=== PATIENT | male | born 1970 ===

== ENCOUNTER 2017-06-10 20:31 | Inpatient (IN) | payer BC, OTHER ==
[2017-06-10] MEDS ORDERED: Morphine 4 mg/ml ISec IVP STA (22:04)
--- NOTE | 2017-06-10 22:04 | ED PDOC ---
Arrival/HPI - General Chief Complaint: Abdominal Pain Time Seen by Provider: 06/10/17 22:03 Historian: Patient - History of Present Illness Narrative History of Present Illness (Text): 06/10/17 22:03 This 47 yo male with pmh gastritis, presents to this ED c/o intermittent RUQ and Epigastric pain x 2 weeks. Patient stated pain has worsen today. Patient feels chills, and nausea. Patient denies sob, cp, urinary symptoms, recent travel, or sick contact. Time/Duration: Other (see hpi) Context: Home Past Medical History - Provider Review Nursing Documentation Reviewed: Yes - Psychiatric Hx Psychophysiologic Disorder: No Hx Substance Use: No Family/Social History - Physician Review Nursing Documentation Reviewed: Yes Family/Social History: Other (noncontributory) Smoking Status: Never Smoked Hx Alcohol Use: No Hx Substance Use: No Allergies/Home Meds Allergies/Adverse Reactions: Allergies No Known Allergies Allergy (Verified 06/10/17 20:57) Home Medications: Home Meds Medication Instructions Recorded Confirmed No Known Home Med 06/10/17 06/10/17 Review of Systems - Review of Systems Constitutional: Normal. absent: Fatigue, Weight Change, Fevers Eyes: Normal ENT: Normal Respiratory: Normal. absent: SOB, Cough Cardiovascular: Normal. absent: Chest Pain, Palpitations Gastrointestinal: Abdominal Pain, Nausea, Vomiting Genitourinary Male: Normal. absent: Dysuria, Frequency, Hematuria Musculoskeletal: Normal Skin: Normal. absent: Rash Neurological: Normal. absent: Headache, Dizziness, Focal Weakness, Gait Changes , Speech Changes, Facial Droop, Disequilibrium, Seizure Endocrine: Normal Hemo/Lymphatic: Normal Psychiatric: Normal Physical Exam Vital Signs Temp Pulse Resp BP Pulse Ox 06/11/17 02:03 99.1 F 95 H 18 115/67 100 06/11/17 01:20 101.6 F H 06/11/17 00:42 101.6 F H 06/10/17 20:57 98.1 F 69 19 116/60 97 Temperature: Afebrile Blood Pressure: Normal Pulse: Regular Respiratory Rate: Normal Appearance: Positive for: Well-Appearing, Non-Toxic, Comfortable Pain Distress: None Mental Status: Positive for: Alert and Oriented X 3 - Systems Exam Head: Present: Atraumatic, Normocephalic Pupils: Present: PERRL Extroacular Muscles: Present: EOMI Conjunctiva: Present: Normal Mouth: Present: Moist Mucous Membranes Neck: Present: Normal Range of Motion Respiratory/Chest: Present: Clear to Auscultation, Good Air Exchange. No: Respiratory Distress, Accessory Muscle Use Cardiovascular: Present: Regular Rate and Rhythm, Normal S1, S2, Rub (and epigastric tenderness). No: Murmurs Abdomen: Present: Tenderness ((+) RUQ ). No: Distention, Peritoneal Signs, Rebound, Guarding Back: Present: Normal Inspection. No: CVA Tenderness Upper Extremity: Present: Normal Inspection. No: Cyanosis, Edema Lower Extremity: Present: Normal Inspection. No: Edema Neurological: Present: GCS=15, CN II-XII Intact, Speech Normal Skin: Present: Warm, Dry, Normal Color. No: Rashes Psychiatric: Present: Alert, Oriented x 3, Normal Insight, Normal Concentration Medical Decision Making ED Course and Treatment: 06/11/17 01:03 I spoke with surgical aides teacher regarding CT scan and lab result. He stated to put a consult for DR. Sheets, and he would take the rest. 06/11/17 02:20 Dr. Sheets is in blue list. I paged Dr. Vallejo, house doctor. 06/11/17 02:[address] Vallejo regarding patient symptoms, lab result and CT/US result. I told her surgical aides teacher is following this case with Dr. Sheets. I had also spoken with Dr. Sheppard , medical review coordinator who stated she was next doctor. She agreed with plan for admission. Re-evaluation Time: 01:03 Reassessment Condition: Re-examined, Improving,but remains with symptoms - Lab Interpretations Lab Results: 06/10/17 22:10 06/10/17 22:10 Lab Results 06/10/17 22:10: Sodium 140, Potassium 3.4 L, Chloride 97 L, Carbon Dioxide 30, Anion Gap 17, BUN 18, Creatinine 0.9, Est GFR ( Amer) > 60, Est GFR (Non- Af Amer) > 60, Random Glucose 184 H, Calcium 9.2, Magnesium 2.0, Total Bilirubin 2.7 H, AST 465 H, ALT 781 H, Alkaline Phosphatase 209 H, Total Protein 7.7, Albumin 4.3, Globulin 3.5, Albumin/Globulin Ratio 1.2, Lipase 152 06/10/17 22:10: PT 11.8, INR 1.03, APTT 26.7 06/10/17 22:10: WBC 10.6, RBC 4.46, Hgb 12.9 L, Hct 38.4 L, MCV 86.1, MCH 28.9, MCHC 33.6, RDW 12.8, Plt Count 217, MPV 10.0, Gran % 88.1 H, Lymph % (Auto) 6.5 L, King[place]isher % (Auto) 5.2, Eos % (Auto) 0.1 L, Baso % (Auto) 0.1, Gran # 9.57 H, Lymph # (Auto) 0.5 L, King[place]isher # (Auto) 0.6, Eos # (Auto) 0.0, Baso # (Auto) 0.01 I have reviewed the lab results: Yes Interpretation: Abnormal lab values - RAD Interpretation Narrative RAD Interpretations (Text): CT Scan ABD PELVIS IV CONTRAST ONLY FINDINGS: LIMITATIONS: Mild streak/motion artifact. LUNG BASES: Lung base findings most compatible with dependent atelectasis. HEART: Mild cardiomegaly. ABDOMEN: LIVER: Fatty infiltration of the liver. GALLBLADDER AND BILE DUCTS: Mild biliary ductal dilatation. The common bile duct measures 8 mm in diameter, and there is mild intrahepatic biliary ductal dilatation. Best seen on images 47 and 48 of series 601, there are at least 2 tiny (2 mm) densities in the lumen of the distal common bile duct, and cannot rule out common bile duct stones. Extensive small gallstones. Suspect a small amount of pericholecystic fluid. Moderate to marked gallbladder dilatation. PANCREAS: No CT evidence of acute pancreatitis. SPLEEN: No acute abnormality of the spleen identified. ADRENALS: No acute abnormality of the adrenal glands identified. KIDNEYS AND URETERS: Incidental tiny low density probable cystic left renal lesion, measuring 4 mm. Consistent with the [employer]?s Incidental Findings Committee Report, unless the patient?s specific circumstances suggest otherwise, any cystic kidney lesion less than 1.0 cm not otherwise characterized in this report as possessing suspicious or indeterminate imaging features is/are highly likely to be benign and do not require follow-up imaging or biopsy. No acute abnormality of the kidneys identified. STOMACH AND BOWEL: No acute abnormality of the stomach, small bowel or colon identified. No evidence of bowel obstruction. APPENDIX: Appendix is seen, and is within normal limits in appearance. PELVIS: BLADDER: No acute abnormality of the bladder identified. REPRODUCTIVE: No acute abnormality of the reproductive organs is seen. ABDOMEN and PELVIS: INTRAPERITONEAL SPACE: No evidence of free intraperitoneal air or fluid. BONES/JOINTS: No acute fractures or other acute bony abnormality noted. SOFT TISSUES: No acute abnormality of the visualized soft tissues is seen. VASCULATURE: No evidence of abdominal aortic aneurysm. No evidence of periaortic hemorrhage. LYMPH NODES: No evidence of diffuse lymphadenopathy. IMPRESSION: - Possible tiny stones in the distal common bile duct, with mild biliary ductal dilatation. - Extensive gallstones, with a suspected small amount of pericholecystic fluid. - Right upper quadrant ultrasound is recommended for further evaluation, to rule early acute cholecystitis and confirm the bile duct stones, unless otherwise clinically indicated. - See above for remaining findings. 06/11/17 00:05 Ultrasound ABDOMEN COMPLETE Exam Date: 06/10/17 This imaging exam was performed at [facility] EXAM: US Abdomen Complete FINDINGS: Gallbladder: Contains extensive, small shadowing gallstones, as well as sludge. No significant gallbladder wall thickening noted. No evidence of pericholecystic fluid. Reportedly negative sonographic Moore's sign. Common bile duct: Measures 6.1 mm, which is slightly dilated (normal less than 6 mm). No common bile duct stones are visualized by ultrasound. Liver: Demonstrates diffusely increased parenchymal echogenicity, most compatible with fatty infiltration. Enlarged, measuring 19 cm in length. Pancreas: Imaged portions appear unremarkable. Right kidney: Within normal limits in appearance. Measures 11.4 cm in length. No evidence of hydronephrosis. Left kidney: Within normal limits in appearance. Measures 12.9 cm in length. No evidence of hydronephrosis. Spleen: Mildly enlarged, measuring 14 cm in length. Aorta: Imaged portions appear unremarkable. IVC: Imaged portions appear unremarkable. IMPRESSION: Slightly dilated common bile duct, 6.1 mm. The possible bile duct stones seen on the recent CT are not visualized sonographically. Recommend correlation with LFTs for laboratory evidence of biliary obstruction, and further workup as indicated, such as with ERCP or MRCP. Extensive gallstones, with no sonographic evidence of acute cholecystitis. Enlarged, fatty liver. Mild splenomegaly. See above for remaining findings. Radiology Orders: 06/10/17 22:04 CHEST PORTABLE [RAD] Stat 06/10/17 22:20 ABDOMEN COMPLETE [US] Stat 06/10/17 22:22 ABD & PELVIS IV CONTRAST ONLY [CT] Stat - Medication Orders Current Medication Orders: Acetaminophen (Tylenol 325mg Tab) 650 mg PO Q6H PRN PRN Reason: Fever >100.4 F Last Admin: 06/11/17 06:52 Dose: 650 mg MAR Pain/Vitals Document 06/11/17 06:52 MAD (Rec: 06/11/17 06:53 MAD [id number]) Pain Reassessment Is This A Pain ReAssessment? Yes Sleep Is patient sleeping during reassessment? No Presence of Pain Presence of Pain Yes Pain Scale Used Pain Scale Used Numeric Location Pain Location Body [employer] Technology Specialist Pain Behavior Rubbing Site Alleviating Factors Medication Metronidazole (Flagyl) 500 mg in 100 mls @ 100 mls/hr IVPB Q8 DANNY PRN Reason: Protocol Last Admin: 06/11/17 05:36 Dose: Comments: 1rst dose scanned out of Pyxis 03:08 am in ER, too soon to give another dose Ceftriaxone Sodium (Rocephin 1 Gram Ivpb) 1 gm in 100 mls @ 100 mls/hr IVPB DAILY DANNY PRN Reason: Protocol Last Admin: 06/11/17 02:05 Dose: 100 mls/hr eMAR Start Stop Document 06/11/17 02:05 RD (Rec: 06/11/17 02:20 RD [id number]) Intravenous Solution Start Date 06/11/17 Start Time 02:05 End Date 06/11/17 End time 03:05 Total Infusion Time 60 Lactated Ringer's (Lactated Ringer's) 1,000 mls @ 100 mls/hr IV .Q10H [facility] Last Admin: 06/11/17 02:05 Dose: 100 mls/hr eMAR Start Stop Document 06/11/17 02:05 RD (Rec: 06/11/17 02:20 RD [id number]) Intravenous Solution Start Date 06/11/17 Start Time 02:05 Morphine Sulfate (Morphine) 2 mg IVP Q4H PRN PRN Reason: Pain, Mild (1-3) Last Admin: 06/11/17 03:54 Dose: 2 mg MAR Pain Assessment Document 06/11/17 03:54 MAD (Rec: 06/11/17 03:55 MAD [id number]) Pain Reassessment Is this a pain reassessment? Yes Sleep Is patient sleeping during reassessment? No Presence of Pain Presence of Pain Yes Pain Scale Used Pain Scale Used Numeric Location Left, Right or Bilateral Bilateral Pain Location Body Site Abdomen Description Description Radiating Intensity of Pain at present 8 Pain Behavior Facial Grimacing Alleviating Factors/Management Medication Techniques Alleviating Factors Medication IVP Administration Document 06/11/17 03:54 MAD (Rec: 06/11/17 03:55 MAD [place] [id number]) Charges for Administration # of IVP Administrations 1 Re-Assess: [facility] Pain Assessment Document 06/11/17 04:54 MAD (Rec: 06/11/17 05:38 MAD [place] [id number]) Pain Reassessment Is this a pain reassessment? Yes Sleep Is patient sleeping during reassessment? Yes Ondansetron HCl (Zofran Inj) 4 mg IVP Q4H PRN PRN Reason: Nausea/Vomiting Pantoprazole Sodium (Protonix Inj) 40 mg IVP DAILY [facility] Last Admin: 06/11/17 11:39 Dose: 40 mg IVP Administration Document 06/11/17 11:39 ROBIN (Rec: 06/11/17 11:40 ROBIN [place] [id number]) Charges for Administration # of IVP Administrations 1 Discontinued Medications Sodium Chloride (Sodium Chloride 0.9%) 1,000 mls @ 999 mls/hr IV .Q1H1M STA Stop: 06/10/17 23:19 Last Admin: 06/10/17 23:08 Dose: 999 mls/hr eMAR Start Stop Document 06/10/17 23:08 RD (Rec: 06/10/17 23:08 RD [id number]) Intravenous Solution Start Date 06/10/17 Start Time 23:08 End Date 06/11/17 End time 00:08 Total Infusion Time 60 Potassium Chloride (Potassium Chloride 10 Meq/100 Ml) 10 meq in 100 mls @ 50 mls/hr IVPB Q2H DANNY Stop: 06/11/17 07:29 Last Admin: 06/11/17 06:29 Dose: 50 mls/hr eMAR Start Stop Document 06/11/17 06:29 MAD (Rec: 06/11/17 06:30 MAD [place] [id number]) Intravenous Solution Start Date 06/11/17 Start Time 06:40 Sodium Chloride (Sodium Chloride 0.9%) 500 mls @ 999 mls/hr IV .Q31M STA Stop: 06/11/17 04:00 Morphine Sulfate (Morphine) 2 mg IVP STAT STA Stop: 06/10/17 22:05 Last Admin: 06/10/17 22:16 Dose: 2 mg MAR Pain Assessment Document 06/10/17 22:16 RD (Rec: 06/10/17 22:17 RD [id number]) Pain Reassessment Is this a pain reassessment? No Sleep Is patient sleeping during reassessment? No Presence of Pain Presence of Pain Yes Location Upper or Lower Upper Pain Location Body Site Abdomen Description Description Pressure Intensity of Pain at present 9 Pain Behavior Moaning Guarding Irritability Alleviating Factors/Management Medication Techniques Alleviating Factors Medication IVP Administration Document 06/10/17 22:16 RD (Rec: 06/10/17 22:17 RD [id number]) Charges for Administration # of IVP Administrations 1 Ondansetron HCl (Zofran Inj) 4 mg IVP STAT STA Stop: 06/10/17 22:06 Last Admin: 06/10/17 22:16 Dose: 4 mg IVP Administration Document 06/10/17 22:16 RD (Rec: 06/10/17 22:16 RD [id number]) Charges for Administration # of IVP Administrations 1 Pantoprazole Sodium (Protonix Inj) 40 mg IVP STAT STA Stop: 06/10/17 22:22 Last Admin: 06/10/17 23:08 Dose: 40 mg IVP Administration Document 06/10/17 23:08 RD (Rec: 06/10/17 23:08 RD [id number]) Charges for Administration # of IVP Administrations 1 Disposition/Present on Arrival - Present on Arrival Any Indicators Present on Arrival: No History of DVT/PE: No History of Uncontrolled Diabetes: No Urinary Catheter: No History of Decub. Ulcer: No History Surgical Site Infection Following: None - Disposition Have Diagnosis and Disposition been Completed?: Yes Diagnosis: Cholangitis Disposition: HOSPITALIZED Disposition Time: 01:04 Patient Problems: Current Active Problems Problem Status Onset Cholangitis Acute Condition: STABLE
[2017-06-10] MEDS ORDERED: Sodium Chloride 0.9% 1,000 ML IV STA (22:19)
[2017-06-10 22:32] LABS: BASO # 0.01 K/mm3 (0.0-2.0); BASO % 0.1 % (0.0-3.0); EOS % 0.1 % (1.5-5.0); GRAN # 9.57 (1.4-6.5); HEMOGLOBIN 12.9 g/dL (14.0-18.0); LYMPH # 0.5 (1.2-3.4); MEAN CELL VOLUME 86.1 fl (80.0-105.0); MEAN CORPUSCULAR HEMOGLOBIN 28.9 pg (25.0-35.0); MEAN CORPUSCULAR HGB CONC 33.6 g/dl (31.0-37.0); MONO # 0.6 (0.1-0.6); MONO % 5.2 % (1.0-6.0); RBC 4.46 10^6/uL (3.5-6.1); RED CELL DISTRIBUTION WIDTH 12.8 % (11.5-14.5); WHITE BLOOD COUNT 10.6 10^3/ul (4.5-11.0)
[2017-06-10 22:33] LABS: GRAN % 88.1 % (50.0-68.0)
[2017-06-10 22:34] LABS: LYMPH % 6.5 % (22.0-35.0)
[2017-06-10 22:39] LABS: ALB/GLOB RATIO 1.2 (1.1-1.8); ALBUMIN 4.3 g/dL (3.0-4.8); ALT/SGPT 781 U/L (7-56); AST/SGOT 465 U/L (17-59); BLOOD UREA NITROGEN 18 mg/dL (7-21); CALCIUM 9.2 mg/dL (8.4-10.5); GFR AFRICAN-AMERICAN > 60; GFR NON-AFRICAN AMERICAN > 60; LIPASE 152 U/L (23-300)
[2017-06-10 22:43] LABS: PROTHROMBIN TIME 11.8 SECONDS (9.4-12.5)
[2017-06-10 22:44] LABS: INR 1.03 (0.93-1.08); PARTIAL THROMBOPLASTIN TIME 26.7 Seconds (25.1-36.5)
[2017-06-10] MEDS ORDERED: Iohexol 350 MG/100 ML VIAL ONE (22:44)
--- NOTE | 2017-06-11 00:04 | CT ---
EXAM: CT Abdomen and Pelvis With Intravenous Contrast EXAM DATE/TIME: 06/10/2017 10:22 PM CLINICAL HISTORY: 47 years male; Pain; Abdominal pain; Localized; Right upper quadrant (ruq); Additional info: Epigastric pain TECHNIQUE: Axial computed tomography images of the abdomen and pelvis with intravenous contrast. All CT scans at this facility use one or more dose reduction techniques, viz.: automated exposure control; ma/kV adjustment per patient size (including targeted exams where dose is matched to indication; i.e. head); or iterative reconstruction technique. Coronal and sagittal reformatted images were created and reviewed. CONTRAST: 100 mL of OMNI administered intravenously. COMPARISON: No relevant prior studies available. FINDINGS: LIMITATIONS: Mild streak/motion artifact. LUNG BASES: Lung base findings most compatible with dependent atelectasis. HEART: Mild cardiomegaly. ABDOMEN: LIVER: Fatty infiltration of the liver. GALLBLADDER AND BILE DUCTS: Mild biliary ductal dilatation. The common bile duct measures 8 mm in diameter, and there is mild intrahepatic biliary ductal dilatation. Best seen on images 47 and 48 of series 601, there are at least 2 tiny (2 mm) densities in the lumen of the distal common bile duct, and cannot rule out common bile duct stones. Extensive small gallstones. Suspect a small amount of pericholecystic fluid. Moderate to marked gallbladder dilatation. PANCREAS: No CT evidence of acute pancreatitis. SPLEEN: No acute abnormality of the spleen identified. ADRENALS: No acute abnormality of the adrenal glands identified. KIDNEYS AND URETERS: Incidental tiny low density probable cystic left renal lesion, measuring 4 mm. Consistent with the [employer]?s Incidental Findings Committee Report, unless the patient?s specific circumstances suggest otherwise, any cystic kidney lesion less than 1.0 cm not otherwise characterized in this report as possessing suspicious or indeterminate imaging features is/are highly likely to be benign and do not require follow-up imaging or biopsy. No acute abnormality of the kidneys identified. STOMACH AND BOWEL: No acute abnormality of the stomach, small bowel or colon identified. No evidence of bowel obstruction. APPENDIX: Appendix is seen, and is within normal limits in appearance. PELVIS: BLADDER: No acute abnormality of the bladder identified. REPRODUCTIVE: No acute abnormality of the reproductive organs is seen. ABDOMEN and PELVIS: INTRAPERITONEAL SPACE: No evidence of free intraperitoneal air or fluid. BONES/JOINTS: No acute fractures or other acute bony abnormality noted. SOFT TISSUES: No acute abnormality of the visualized soft tissues is seen. VASCULATURE: No evidence of abdominal aortic aneurysm. No evidence of periaortic hemorrhage. LYMPH NODES: No evidence of diffuse lymphadenopathy. IMPRESSION: - Possible tiny stones in the distal common bile duct, with mild biliary ductal dilatation. - Extensive gallstones, with a suspected small amount of pericholecystic fluid. - Right upper quadrant ultrasound is recommended for further evaluation, to rule early acute cholecystitis and confirm the bile duct stones, unless otherwise clinically indicated. - See above for remaining findings.
--- NOTE | 2017-06-11 00:12 | US ---
EXAM: US Abdomen Complete EXAM DATE/TIME: 06/10/2017 10:20 PM CLINICAL HISTORY: 47 years old, male; Pain; Abdominal pain; Generalized; Additional info: Epigastric pain TECHNIQUE: Real-time ultrasound of the abdomen (complete) with image documentation. COMPARISON: Recent CT abdomen. FINDINGS: Gallbladder: Contains extensive, small shadowing gallstones, as well as sludge. No significant gallbladder wall thickening noted. No evidence of pericholecystic fluid. Reportedly negative sonographic Moore's sign. Common bile duct: Measures 6.1 mm, which is slightly dilated (normal less than 6 mm). No common bile duct stones are visualized by ultrasound. Liver: Demonstrates diffusely increased parenchymal echogenicity, most compatible with fatty infiltration. Enlarged, measuring 19 cm in length. Pancreas: Imaged portions appear unremarkable. Right kidney: Within normal limits in appearance. Measures 11.4 cm in length. No evidence of hydronephrosis. Left kidney: Within normal limits in appearance. Measures 12.9 cm in length. No evidence of hydronephrosis. Spleen: Mildly enlarged, measuring 14 cm in length. Aorta: Imaged portions appear unremarkable. IVC: Imaged portions appear unremarkable. IMPRESSION: Slightly dilated common bile duct, 6.1 mm. The possible bile duct stones seen on the recent CT are not visualized sonographically. Recommend correlation with LFTs for laboratory evidence of biliary obstruction, and further workup as indicated, such as with ERCP or MRCP. Extensive gallstones, with no sonographic evidence of acute cholecystitis. Enlarged, fatty liver. Mild splenomegaly. See above for remaining findings.
--- NOTE | 2017-06-11 00:50 | CP.PCM.HP ---
History of Present Illness - History of Present Illness History of Present Illness: General Surgery: Dr Sheets full dictation to follow Past Patient History - Past Social History Smoking Status: Never Smoked - PSYCHIATRIC Hx Psychophysiologic Disorder: No Hx Substance Use: No - SURGICAL HISTORY Hx Surgeries: No Meds Allergies/Adverse Reactions: Allergies Allergy/AdvReac Type Severity Reaction Status Date / Time No Known Allergies Allergy Verified 06/10/17 20:57 Results - Vital Signs Recent Vital Signs: Last Vital Signs Temp 101.6 F H 06/11/17 00:42 Pulse 69 06/10/17 20:57 Resp 19 06/10/17 20:57 BP 116/60 06/10/17 20:57 Pulse Ox 97 06/10/17 20:57 - Labs Result Diagrams: 06/10/17 22:10 06/10/17 22:10 Labs: Laboratory Results - last 24 hr 06/10/17 06/10/17 06/10/17 22:10 22:10 22:10 WBC 10.6 RBC 4.46 Hgb 12.9 L Hct 38.4 L MCV 86.1 MCH 28.9 MCHC 33.6 RDW 12.8 Plt Count 217 MPV 10.0 Gran % 88.1 H Lymph % (Auto) 6.5 L Stephen[place] % (Auto) 5.2 Eos % (Auto) 0.1 L Baso % (Auto) 0.1 Gran # 9.57 H Lymph # (Auto) 0.5 L Stephen[place] # (Auto) 0.6 Eos # (Auto) 0.0 Baso # (Auto) 0.01 PT 11.8 INR 1.03 APTT 26.7 Sodium 140 Potassium 3.4 L Chloride 97 L Carbon Dioxide 30 Anion Gap 17 BUN 18 Creatinine 0.9 Est GFR ( Amer) > 60 Est GFR (Non-Af Amer) > 60 Random Glucose 184 H Calcium 9.2 Magnesium 2.0 Total Bilirubin 2.7 H AST 465 H ALT 781 H Alkaline Phosphatase 209 H Total Protein 7.7 Albumin 4.3 Globulin 3.5 Albumin/Globulin Ratio 1.2 Lipase 152 Assessment & Plan - Assessment and Plan (Free Text) Plan: NPO iv fluids iv abx pain meds/anti-emetics prn IV protonix MRCP tomorrow routine GI consult will d/w Dr Sudeep Barbosa, PGY3
[2017-06-11] MEDS: Lactated Ringer's 1,000 ML IV SCH (02:05)
[2017-06-11] MEDS: cefTRIAXone 1 gm 1 GM/100 ML BAG IVPB SCH ×2 (02:05→14:23)
[2017-06-11] MEDS: metroNIDAZOLE IV 500 mg/100 ml 500 MG/100 ML BAG IVPB SCH ×4 (03:08→21:04)
[2017-06-11] MEDS ORDERED: Sodium Chloride 0.9% 500 ML IV STA (03:30)
--- NOTE | 2017-06-11 03:30 | CP.PCM.HP ---
History of Present Illness - History of Present Illness History of Present Illness: Valarie Ortiz, PGY1, H&P for Dr Elida Vallejo: CC: epigastric pain, subjective fevers 47 year old male with PMH gastritis?/GERD, presents to ED for epigastric pain for past 2 weeks. Pt states that since childhood, he had been told in his country [place] that he had gastritis because he could not drink milk. So far, he avoided acidic foods like coffee/tea, chocolate, spicy foods. Two weeks ago, he drank tea, he subsequently developed epigastric pain. It worsened over the next few days, describes it as sharp, associated with eating, intermittent, radiating to back, had associated subjective fevers, nausea, poor appetite. Pt reports a history of constipation, requiring miralax and sometimes enema. Denies jaundice, altered mental status, confusion, cough, cp, sob, diaphoresis, dizziness, weakness, urinary symptoms, leg swelling. No prior EGD/colonoscopy. In ED, pt febrile 101.6F, other vitals stable. Elevated t bili 2.7, AST 465, ALT 781, ALP 209, lipase normal. 1L NS bolus, protonix 40 IV, zofran and morphine given in ED. RUQ US showed stones in CBD, mildly dilated 6.1 mm. + gallstones. 12 point ROS obtained and neg, except as per HPI. PMH: gastritis?/GERD, headaches PSH: left eye cyst removalx3 (last one 2010) NKA FH: Mother, heart conditions (does not specific ones) Father, HTN denies Gi malignancies/conditions in family SH: Lives with and kid. Works at [employer]. Originally from [place]. Denies etoh/tobacco/illicit drug use. PMD: denies Present on Admission - Present on Admission Any Indicators Present on Admission: No History of DVT/PE: No History of Uncontrolled Diabetes: No Urinary Catheter: No Decubitus Ulcer Present: No Review of Systems - Review of Systems All systems: reviewed and no additional remarkable complaints except Review of Systems: as per HPI Past Patient History - Past Social History Smoking Status: Never Smoked - PSYCHIATRIC Hx Psychophysiologic Disorder: No Hx Substance Use: No - SURGICAL HISTORY Hx Surgeries: No Meds Allergies/Adverse Reactions: Allergies Allergy/AdvReac Type Severity Reaction Status Date / Time No Known Allergies Allergy Verified 06/10/17 20:57 Physical Exam - Constitutional Appears: Non-toxic, No Acute Distress - Head Exam Head Exam: ATRAUMATIC, NORMOCEPHALIC - Eye Exam Eye Exam: EOMI, PERRL, Scleral icterus (+ mild). absent: Conjunctival injection , Nystagmus, Periorbital swelling, Periorbital tenderness Pupil Exam: NORMAL ACCOMODATION, PERRL. absent: Fixed, Irregular, Miosis, Mydriatic, Unequal - ENT Exam ENT Exam: Mucous Membranes Dry - Neck Exam Neck exam: Positive for: Full Rom - Respiratory Exam Respiratory Exam: Clear to Auscultation Bilateral, NORMAL BREATHING PATTERN. absent: Accessory Muscle Use, Chest Wall Tenderness, Decreased Breath Sounds, Rales, Rhonchi, Wheezes, Stridor - Cardiovascular Exam Cardiovascular Exam: +S1, +S2. absent: Tachycardia, Systolic Murmur - GI/Abdominal Exam GI & Abdominal Exam: Guarding (mild in epigastric and RUQ areas), Hypoactive Bowel Sounds, Soft, Tenderness (TTP in epigastric and RUQ areas). absent: Distended, Firm, Hernia, Mass, Organomegaly, Rebound, Rigid - Extremities Exam Extremities exam: Positive for: normal inspection. Negative for: calf tenderness, pedal edema - Back Exam Back exam: NORMAL INSPECTION. absent: CVA tenderness (L), CVA tenderness (R) - Neurological Exam Neurological exam: Alert, Oriented x3 - Psychiatric Exam Psychiatric exam: Anxious, Normal Mood - Skin Skin Exam: Dry, Warm Additional comments: + jaundice noted on bilateral palms and sclera Results - Vital Signs Recent Vital Signs: Last Vital Signs Temp 99.1 F 06/11/17 02:03 Pulse 95 H 06/11/17 02:03 Resp 18 06/11/17 02:03 BP 115/67 06/11/17 02:03 Pulse Ox 100 06/11/17 02:03 - Labs Result Diagrams: 06/10/17 22:10 06/10/17 22:10 Labs: Laboratory Results - last 24 hr 06/10/17 06/10/17 06/10/17 22:10 22:10 22:10 WBC 10.6 RBC 4.46 Hgb 12.9 L Hct 38.4 L MCV 86.1 MCH 28.9 MCHC 33.6 RDW 12.8 Plt Count 217 MPV 10.0 Gran % 88.1 H Lymph % (Auto) 6.5 L [place] % (Auto) 5.2 Eos % (Auto) 0.1 L Baso % (Auto) 0.1 Gran # 9.57 H Lymph # (Auto) 0.5 L [place] # (Auto) 0.6 Eos # (Auto) 0.0 Baso # (Auto) 0.01 PT 11.8 INR 1.03 APTT 26.7 Sodium 140 Potassium 3.4 L Chloride 97 L Carbon Dioxide 30 Anion Gap 17 BUN 18 Creatinine 0.9 Est GFR ( Amer) > 60 Est GFR (Non-Af Amer) > 60 Random Glucose 184 H Calcium 9.2 Magnesium 2.0 Total Bilirubin 2.7 H AST 465 H ALT 781 H Alkaline Phosphatase 209 H Total Protein 7.7 Albumin 4.3 Globulin 3.5 Albumin/Globulin Ratio 1.2 Lipase 152 Assessment & Plan - Assessment and Plan (Free Text) Assessment: 47 year old male with PMH GERD/gastritis?, presents for epigastric pain, fever, jaundice: Cholangitis: 2/2 CBD stone vs less likely malignancy or benign stricture - Abd/pelvis CT: possible tiny stones in distal CBD, with mild biliary ductal dilatation. Extensive gallstones, with small amount of pericholecystic fluid. Fatty infiltration of liver - Abd US: Slightly dilated CBD, 6.1 mm. recommend further workup with MRCP or ERCP. extensive gallstones, with no sonographic evidence of cholecystitis. Enlarge fatty liver. Mild splenomegaly. - IV Rocephin, Flagyl - LR@100 - Type and Screen - Tylenol prn fever - Pain control. prn zofran - Surgery and GI on board. F/u recs - MRCP tomorrow at 9 AM - NPO - protonix IV Mild hypokalemia: - K ridersx2 - daily CMP - monitor PPX: Protonix IV, SCDs Discussed with Dr Elida Vallejo. - Date & Time Date: 06/11/17 Time: 03:30
[2017-06-11] MEDS: Morphine 4 mg/ml ISec IVP PRN ×2 (03:54→20:36)
[2017-06-11 05:15] VITALS: BMI 25.7
[2017-06-11 07:52] LABS: BASO # 0.01 K/mm3 (0.0-2.0); BASO % 0.1 % (0.0-3.0); EOS # 0.1 (0.0-0.7); EOS % 0.5 % (1.5-5.0); GRAN # 8.12 (1.4-6.5); GRAN % 82.7 % (50.0-68.0); HEMOGLOBIN 12.2 g/dL (14.0-18.0); LYMPH # 0.8 (1.2-3.4); LYMPH % 8.4 % (22.0-35.0); MEAN CELL VOLUME 86.5 fl (80.0-105.0); MEAN CORPUSCULAR HEMOGLOBIN 28.4 pg (25.0-35.0); MEAN CORPUSCULAR HGB CONC 32.8 g/dl (31.0-37.0); MONO # 0.8 (0.1-0.6); MONO % 8.3 % (1.0-6.0); RBC 4.3 10^6/uL (3.5-6.1); RED CELL DISTRIBUTION WIDTH 13.2 % (11.5-14.5); WHITE BLOOD COUNT 9.8 10^3/ul (4.5-11.0)
[2017-06-11 08:07] LABS: ALB/GLOB RATIO 1.3 (1.1-1.8); ALBUMIN 4.1 g/dL (3.0-4.8); ALT/SGPT 734 U/L (7-56); AST/SGOT 398 U/L (17-59); BILIRUBIN,DIRECT 2.7 mg/dL (0.0-0.4); BLOOD UREA NITROGEN 15 mg/dL (7-21); CALCIUM 8.6 mg/dL (8.4-10.5); GFR AFRICAN-AMERICAN > 60; GFR NON-AFRICAN AMERICAN > 60
--- NOTE | 2017-06-11 08:22 | CP.PCM.CON ---
History of Present Illness - History of Present Illness History of Present Illness: General Surgery Consult: Dr Sheets Pt is a 47M with PMH of gastritis who presents to ED with 2 weeks of epigastric pain. Pt states pain has been on and off, with intermittent nausea, but over the past 24 hours it has significantly worsened. The pain is 10/10, sharp stabbing in the epigastric region which radiates to the RUQ. He denies any vomiting, sob, or chest pain. He does admit to chills. Pt states this discomfort is different than his previous episodes of gastritis. Admits to regular bowel movements. Does not attribute his symptoms to any specific foods. Pt admits he does not regularly see a doctor. PMH: gastritis PSH: denies NKDA Review of Systems - Review of Systems All systems: reviewed and no additional remarkable complaints except (as per hpi ) Past Patient History - Past Social History Smoking Status: Never Smoked - CARDIAC Hx Cardiac Disorders: Yes - PULMONARY Hx Respiratory Disorders: No - NEUROLOGICAL Hx Neurological Disorder: No - HEENT Hx HEENT Problems: No - RENAL Hx Chronic Kidney Disease: No - ENDOCRINE/METABOLIC Hx Endocrine Disorders: No - HEMATOLOGICAL/ONCOLOGICAL Hx Blood Disorders: No - INTEGUMENTARY Hx Dermatological Problems: No - MUSCULOSKELETAL/RHEUMATOLOGICAL Hx Musculoskeletal Disorders: No Hx Falls: No - GASTROINTESTINAL Hx Gastrointestinal Disorders: Yes Other/Comment: Hx gastritis - GENITOURINARY/GYNECOLOGICAL Hx Genitourinary Disorders: No - PSYCHIATRIC Hx Psychophysiologic Disorder: No Hx Substance Use: No - SURGICAL HISTORY Hx Surgeries: No Meds Allergies/Adverse Reactions: Allergies Allergy/AdvReac Type Severity Reaction Status Date / Time No Known Allergies Allergy Verified 06/10/17 20:57 - Medications Medications: Current Medications Acetaminophen (Tylenol 325mg Tab) 650 mg PO Q6H PRN PRN Reason: Fever >100.4 F Last Admin: 06/11/17 06:52 Dose: 650 mg Metronidazole (Flagyl) 500 mg in 100 mls @ 100 mls/hr IVPB Q8 DANNY PRN Reason: Protocol Last Admin: 06/11/17 05:36 Dose: Not Given Ceftriaxone Sodium (Rocephin 1 Gram Ivpb) 1 gm in 100 mls @ 100 mls/hr IVPB DAILY DANNY PRN Reason: Protocol Last Admin: 06/11/17 02:05 Dose: 100 mls/hr Lactated Ringer's (Lactated Ringer's) 1,000 mls @ 100 mls/hr IV .Q10H [facility] Last Admin: 06/11/17 02:05 Dose: 100 mls/hr Morphine Sulfate (Morphine) 2 mg IVP Q4H PRN PRN Reason: Pain, Mild (1-3) Last Admin: 06/11/17 03:54 Dose: 2 mg Ondansetron HCl (Zofran Inj) 4 mg IVP Q4H PRN PRN Reason: Nausea/Vomiting Pantoprazole Sodium (Protonix Inj) 40 mg IVP DAILY [facility] Physical Exam - Constitutional Appears: Non-toxic, No Acute Distress - Head Exam Head Exam: NORMAL INSPECTION - Eye Exam Eye Exam: Normal appearance - ENT Exam ENT Exam: Mucous Membranes Dry - Respiratory Exam Respiratory Exam: absent: Accessory Muscle Use, Respiratory Distress - Cardiovascular Exam Cardiovascular Exam: REGULAR RHYTHM. absent: Tachycardia - GI/Abdominal Exam GI & Abdominal Exam: Soft, Tenderness (epigastric and RUQ). absent: Distended, Firm, Guarding, Hernia, Rebound, Rigid - Extremities Exam Extremities exam: Negative for: pedal edema - Neurological Exam Neurological exam: Alert, Oriented x3 - Psychiatric Exam Psychiatric exam: Normal Affect, Normal Mood - Skin Skin Exam: Normal Color, Warm Results - Vital Signs Recent Vital Signs: Last Vital Signs Temp 98.2 F 06/11/17 08:05 Pulse 84 06/11/17 08:05 Resp 20 06/11/17 08:05 BP 104/63 06/11/17 08:05 Pulse Ox 98 06/11/17 08:05 - Labs Result Diagrams: 06/11/17 07:30 06/11/17 07:30 Labs: Laboratory Results - last 24 hr 06/11/17 06/11/17 06/11/17 01:40 07:30 07:30 WBC 9.8 RBC 4.30 Hgb 12.2 L Hct 37.2 L MCV 86.5 MCH 28.4 MCHC 32.8 RDW 13.2 Plt Count 192 MPV 10.0 Gran % 82.7 H Lymph % (Auto) 8.4 L [place] % (Auto) 8.3 H Eos % (Auto) 0.5 L Baso % (Auto) 0.1 Gran # 8.12 H Lymph # (Auto) 0.8 L [place] # (Auto) 0.8 H Eos # (Auto) 0.1 Baso # (Auto) 0.01 Sodium 141 Potassium 3.7 Chloride 101 Carbon Dioxide 26 Anion Gap 17 BUN 15 Creatinine 0.8 Est GFR ( Amer) > 60 Est GFR (Non-Af Amer) > 60 Random Glucose 123 H Calcium 8.6 Total Bilirubin 3.1 H Direct Bilirubin 2.7 H AST 398 H ALT 734 H Alkaline Phosphatase 195 H Total Protein 7.4 Albumin 4.1 Globulin 3.3 Albumin/Globulin Ratio 1.3 Blood Type A POSITIVE Antibody Screen Negative BBK History Checked No verified bt Assessment & Plan - Assessment and Plan (Free Text) Assessment: 47M with possible choledocholithiasis; now with fevers Plan: NPO iv fluids iv abx pain meds/anti-emetics prn IV protonix MRCP tomorrow GI consult likely will need cholecystectomy this admission will d/w Dr Sudeep Barbosa, PGY3
--- NOTE | 2017-06-11 10:05 | RAD ---
HISTORY: Epigastric pain COMPARISON: No prior. FINDINGS: LUNGS: Poor inspiration with low, crowded bronchovascular markings and mild bibasilar atelectasis. PLEURA: No significant pleural effusion identified, no pneumothorax apparent. CARDIOVASCULAR: Heart appears borderline/ mildly enlarged OSSEOUS STRUCTURES: Note made of mild localized dextroscoliosis mid to lower thoracic spine VISUALIZED UPPER ABDOMEN: Normal. OTHER FINDINGS: None. IMPRESSION: Poor inspiration with low, crowded bronchovascular markings and mild bibasilar atelectasis.
--- NOTE | 2017-06-11 12:17 | CP.PCM.CON ---
<Josefina Obrien - Last Filed: 06/11/17 12:40> History of Present Illness - History of Present Illness History of Present Illness: Initial PGY4 GI Consult Zack Valerio is a 47M with hx of migraines who presents to ED for epigastric pain for past 2 weeks. Pt states that he has had chronic GERD like symptoms for years. He notes a sudden onset of acute and chronic symptoms for the past 2 week. It progressively worsened over the next few days. He characterizes it as sharp, associated with eating, intermittent, radiating to back. He also admits to associated subjective fevers, nausea, poor appetite. Pt reports a history of constipation, requiring miralax and sometimes enema. Denies jaundice, altered mental status, confusion, cough, cp, sob, diaphoresis, dizziness, weakness, urinary symptoms, leg swelling. No prior EGD/colonoscopy. Pt has been febrile with T. max of 101.6F, other vitals stable. Elevated t bili 2.7, AST 465, ALT 781, ALP 209, lipase normal. RUQ US showed stones in CBD, mildly dilated 6.1 mm. + gallstones. 12 point ROS obtained and neg, except as per HPI. PMH: gastritis?/GERD, headaches PSH: left eye cyst removalx3 (last one 2010) FH: Mother, heart conditions (does not specific ones), Father, HTN, denies Gi malignancies/conditions in family SH: Lives with and kid. Works at [employer]. Originally from [place]. Denies etoh/tobacco/illicit drug use. Endo hx: none ROS: 12 point ROS conducted, neg other than above Past Patient History - Past Social History Smoking Status: Never Smoked - CARDIAC Hx Cardiac Disorders: Yes - PULMONARY Hx Respiratory Disorders: No - NEUROLOGICAL Hx Neurological Disorder: No - HEENT Hx HEENT Problems: No - RENAL Hx Chronic Kidney Disease: No - ENDOCRINE/METABOLIC Hx Endocrine Disorders: No - HEMATOLOGICAL/ONCOLOGICAL Hx Blood Disorders: No - INTEGUMENTARY Hx Dermatological Problems: No - MUSCULOSKELETAL/RHEUMATOLOGICAL Hx Musculoskeletal Disorders: No Hx Falls: No - GASTROINTESTINAL Hx Gastrointestinal Disorders: Yes Other/Comment: Hx gastritis - GENITOURINARY/GYNECOLOGICAL Hx Genitourinary Disorders: No - PSYCHIATRIC Hx Psychophysiologic Disorder: No Hx Substance Use: No - SURGICAL HISTORY Hx Surgeries: No Meds Allergies/Adverse Reactions: Allergies Allergy/AdvReac Type Severity Reaction Status Date / Time No Known Allergies Allergy Verified 06/10/17 20:57 - Medications Medications: Current Medications Acetaminophen (Tylenol 325mg Tab) 650 mg PO Q6H PRN PRN Reason: Fever >100.4 F Last Admin: 06/11/17 06:52 Dose: 650 mg Metronidazole (Flagyl) 500 mg in 100 mls @ 100 mls/hr IVPB Q8 DANNY PRN Reason: Protocol Last Admin: 06/11/17 05:36 Dose: Not Given Ceftriaxone Sodium (Rocephin 1 Gram Ivpb) 1 gm in 100 mls @ 100 mls/hr IVPB DAILY [facility] PRN Reason: Protocol Last Admin: 06/11/17 02:05 Dose: 100 mls/hr Lactated Ringer's (Lactated Ringer's) 1,000 mls @ 100 mls/hr IV .Q10H [facility] Last Admin: 06/11/17 02:05 Dose: 100 mls/hr Morphine Sulfate (Morphine) 2 mg IVP Q4H PRN PRN Reason: Pain, Mild (1-3) Last Admin: 06/11/17 03:54 Dose: 2 mg Ondansetron HCl (Zofran Inj) 4 mg IVP Q4H PRN PRN Reason: Nausea/Vomiting Pantoprazole Sodium (Protonix Inj) 40 mg IVP DAILY [facility] Last Admin: 06/11/17 11:39 Dose: 40 mg Physical Exam - Constitutional Appears: Well, No Acute Distress - Head Exam Head Exam: ATRAUMATIC, NORMOCEPHALIC - Eye Exam Eye Exam: Normal appearance. absent: Scleral icterus - ENT Exam ENT Exam: Mucous Membranes Moist, Normal Exam - Neck Exam Neck exam: Positive for: Normal Inspection - Respiratory Exam Respiratory Exam: Clear to Auscultation Bilateral, NORMAL BREATHING PATTERN. absent: Prolonged Expiratory Phase, Rales, Rhonchi, Wheezes - Cardiovascular Exam Cardiovascular Exam: REGULAR RHYTHM, +S1, +S2 - GI/Abdominal Exam GI & Abdominal Exam: Normal Bowel Sounds. absent: Distended, Guarding, Organomegaly, Pulsatile Mass, Rebound, Rigid, Soft - Extremities Exam Extremities exam: Negative for: joint swelling, pedal edema - Neurological Exam Neurological exam: Alert, Oriented x3 - Psychiatric Exam Psychiatric exam: Normal Affect, Normal Mood - Skin Skin Exam: Dry, Intact, Normal Color, Warm Results - Vital Signs Recent Vital Signs: Last Vital Signs Temp 98.2 F 06/11/17 08:05 Pulse 84 06/11/17 08:05 Resp 20 06/11/17 08:05 BP 104/63 06/11/17 08:05 Pulse Ox 98 06/11/17 08:05 - Labs Result Diagrams: 06/11/17 07:30 06/11/17 07:30 Labs: Laboratory Results - last 24 hr 06/11/17 06/11/17 06/11/17 01:40 07:30 07:30 WBC 9.8 RBC 4.30 Hgb 12.2 L Hct 37.2 L MCV 86.5 MCH 28.4 MCHC 32.8 RDW 13.2 Plt Count 192 MPV 10.0 Gran % 82.7 H Lymph % (Auto) 8.4 L [place] % (Auto) 8.3 H Eos % (Auto) 0.5 L Baso % (Auto) 0.1 Gran # 8.12 H Lymph # (Auto) 0.8 L [place] # (Auto) 0.8 H Eos # (Auto) 0.1 Baso # (Auto) 0.01 Sodium 141 Potassium 3.7 Chloride 101 Carbon Dioxide 26 Anion Gap 17 BUN 15 Creatinine 0.8 Est GFR ( Amer) > 60 Est GFR (Non-Af Amer) > 60 Random Glucose 123 H Calcium 8.6 Total Bilirubin 3.1 H Direct Bilirubin 2.7 H AST 398 H ALT 734 H Alkaline Phosphatase 195 H Total Protein 7.4 Albumin 4.1 Globulin 3.3 Albumin/Globulin Ratio 1.3 Blood Type A POSITIVE Blood Type Confirm Antibody Screen Negative BBK History Checked No verified bt 06/11/17 07:30 WBC RBC Hgb Hct MCV MCH MCHC RDW Plt Count MPV Gran % Lymph % (Auto) [place] % (Auto) Eos % (Auto) Baso % (Auto) Gran # Lymph # (Auto) [place] # (Auto) Eos # (Auto) Baso # (Auto) Sodium Potassium Chloride Carbon Dioxide Anion Gap BUN Creatinine Est GFR ( Amer) Est GFR (Non-Af Amer) Random Glucose Calcium Total Bilirubin Direct Bilirubin AST ALT Alkaline Phosphatase Total Protein Albumin Globulin Albumin/Globulin Ratio Blood Type Blood Type Confirm A POSITIVE Antibody Screen BBK History Checked Assessment & Plan - Assessment and Plan (Free Text) Assessment: Zack Valerio is a 47M w. hx of GERD who presents to the ER with epigastric and RUQ pain Choleangitis Cholelithiasis GERD Chronic constipation Plan: -ERCO for tomorrow -no need for MRCP -NPO after midnight -okay for clears to day -continue abc; ceftriaxone and flagyl -continue protonix 40mg daily -blood cultures -miralax BID D/w Dr. Rene <Ronald Rene - Last Filed: 06/11/17 16:40> Meds - Medications Medications: Current Medications Acetaminophen (Tylenol 325mg Tab) 650 mg PO Q6H PRN PRN Reason: Fever >100.4 F Last Admin: 06/11/17 06:52 Dose: 650 mg Acetaminophen (Tylenol 325mg Tab) 650 mg PO Q6H PRN PRN Reason: Headache Last Admin: 06/11/17 13:54 Dose: 650 mg Metronidazole (Flagyl) 500 mg in 100 mls @ 100 mls/hr IVPB Q8 DANNY PRN Reason: Protocol Last Admin: 06/11/17 13:52 Dose: 100 mls/hr Ceftriaxone Sodium (Rocephin 1 Gram Ivpb) 1 gm in 100 mls @ 100 mls/hr IVPB DAILY DANNY PRN Reason: Protocol Last Admin: 06/11/17 14:23 Dose: 100 mls/hr Lactated Ringer's (Lactated Ringer's) 1,000 mls @ 100 mls/hr IV .Q10H [facility] Last Admin: 06/11/17 02:05 Dose: 100 mls/hr Morphine Sulfate (Morphine) 2 mg IVP Q4H PRN PRN Reason: Pain, Mild (1-3) Last Admin: 06/11/17 03:54 Dose: 2 mg Ondansetron HCl (Zofran Inj) 4 mg IVP Q4H PRN PRN Reason: Nausea/Vomiting Pantoprazole Sodium (Protonix Inj) 40 mg IVP DAILY [facility] Last Admin: 06/11/17 11:39 Dose: 40 mg Polyethylene Glycol (Miralax) 17 gm PO BID [facility] Results - Vital Signs Recent Vital Signs: Last Vital Signs Temp 98.2 F 06/11/17 08:05 Pulse 84 06/11/17 08:05 Resp 20 06/11/17 08:05 BP 104/63 06/11/17 08:05 Pulse Ox 98 06/11/17 08:05 - Labs Result Diagrams: 06/11/17 07:30 06/11/17 07:30 Labs: Laboratory Results - last 24 hr 06/11/17 06/11/17 06/11/17 01:40 07:30 07:30 WBC 9.8 RBC 4.30 Hgb 12.2 L Hct 37.2 L MCV 86.5 MCH 28.4 MCHC 32.8 RDW 13.2 Plt Count 192 MPV 10.0 Gran % 82.7 H Lymph % (Auto) 8.4 L [place] % (Auto) 8.3 H Eos % (Auto) 0.5 L Baso % (Auto) 0.1 Gran # 8.12 H Lymph # (Auto) 0.8 L [place] # (Auto) 0.8 H Eos # (Auto) 0.1 Baso # (Auto) 0.01 Sodium 141 Potassium 3.7 Chloride 101 Carbon Dioxide 26 Anion Gap 17 BUN 15 Creatinine 0.8 Est GFR ( Amer) > 60 Est GFR (Non-Af Amer) > 60 Random Glucose 123 H Calcium 8.6 Total Bilirubin 3.1 H Direct Bilirubin 2.7 H AST 398 H ALT 734 H Alkaline Phosphatase 195 H Total Protein 7.4 Albumin 4.1 Globulin 3.3 Albumin/Globulin Ratio 1.3 Blood Type A POSITIVE Blood Type Confirm Antibody Screen Negative BBK History Checked No verified bt 06/11/17 07:30 WBC RBC Hgb Hct MCV MCH MCHC RDW Plt Count MPV Gran % Lymph % (Auto) [place] % (Auto) Eos % (Auto) Baso % (Auto) Gran # Lymph # (Auto) [place] # (Auto) Eos # (Auto) Baso # (Auto) Sodium Potassium Chloride Carbon Dioxide Anion Gap BUN Creatinine Est GFR ( Amer) Est GFR (Non-Af Amer) Random Glucose Calcium Total Bilirubin Direct Bilirubin AST ALT Alkaline Phosphatase Total Protein Albumin Globulin Albumin/Globulin Ratio Blood Type Blood Type Confirm A POSITIVE Antibody Screen BBK History Checked Attending/Attestation - Attestation I have personally seen and examined this patient.: Yes I have fully participated in the care of the patient.: Yes I have reviewed all pertinent clinical information: Yes Notes (Text): 06/11/17 16:39 47 year old male with abdominal pain, elevated lfts, found to have choledocholithiasis and cholangitis. Plan for ERCP tomorrow. Recommend broad spectrum abx in the interim.
[2017-06-11] MEDS ORDERED: Magnesium Hydroxide Susp 30 ml UD PO ONE (13:27)
[2017-06-11] MEDS: POLYETHYLENE GLYCOL 3350 17 GM/Dose PACKET PO SCH (18:10)
--- NOTE | 2017-06-11 22:45 | CON ---
DATE: HISTORY OF PRESENT ILLNESS: Patient is seen on the floor for the first time. He is admitted with abdominal pain from the emergency room. His temperature on admission was 101.6. He is afebrile now. Blood pressure is normal. 150 pounds. White count is 9.8, hemoglobin 12, platelets normal. Coags normal. SMA, liver function showed a bilirubin of 3.1 mostly direct. AST and ALT are both elevated; one 400, one 700. Alk phos is slightly elevated at 195. CAT scan is done, which showed a dilated common duct and possible choledocholithiasis. MRCP is ordered, but canceled. Seen by Dr. Rene and I believe, an ERCP is ordered and indicated. Ultrasound showed a dilated common duct of 6.1, questionable stones and a thinned-walled gallbladder. Apparently, ERCP is scheduled for tomorrow, possibly Tuesday. He is on antibiotics. Miguel Sheets MD
--- NOTE | 2017-06-11 23:46 | CARD ---
APPROVED REPORT EKG Measurement Heart [id number] <Conclusion> Sinus tachycardia Voltage criteria for left ventricular hypertrophy Inferior infarct, age undetermined Abnormal ECG
[2017-06-12] MEDS: Morphine 4 mg/ml ISec IVP PRN (03:05)
[2017-06-12] MEDS: metroNIDAZOLE IV 500 mg/100 ml 500 MG/100 ML BAG IVPB SCH ×3 (05:20→21:11)
[2017-06-12] MEDS ORDERED: Morphine 4 mg/ml ISec IVP ONE (05:29)
[2017-06-12] MEDS ORDERED: Lactated Ringer's 1,000 ML IV SCH (08:00)
[2017-06-12] MEDS ORDERED: Propofol 10 mg/ml Inj (20 ML) ONE (08:07)
[2017-06-12] MEDS ORDERED: Succinylcholine 200 mg/10 ml Inj IV ONE (08:08)
[2017-06-12 08:12] LABS: EOS # 0.1 (0.0-0.7); EOS % 0.6 % (1.5-5.0); GRAN # 6.79 (1.4-6.5); GRAN % 85.5 % (50.0-68.0); HEMOGLOBIN 11.2 g/dL (14.0-18.0); LYMPH # 0.5 (1.2-3.4); LYMPH % 6.5 % (22.0-35.0); MEAN CELL VOLUME 86.9 fl (80.0-105.0); MEAN CORPUSCULAR HEMOGLOBIN 28.3 pg (25.0-35.0); MEAN CORPUSCULAR HGB CONC 32.6 g/dl (31.0-37.0); MEAN PLATELET VOLUME 10.3 fl (7.0-11.0); MONO # 0.6 (0.1-0.6); MONO % 7.4 % (1.0-6.0); RBC 3.96 10^6/uL (3.5-6.1)
[2017-06-12] MEDS ORDERED: Indomethacin 50 MG Suppository PR ONE (08:16)
[2017-06-12] MEDS ORDERED: Iohexol 240 (50 ml) ONE (08:17)
--- NOTE | 2017-06-12 08:21 | CP.PCM.PN ---
<Oj Murray - Last Filed: 06/12/17 11:32> Subjective - Date & Time of Evaluation Date of Evaluation: 06/12/17 Time of Evaluation: 08:12 - Subjective Subjective: Patient seen and evaluated this AM. No acute events overnight. Patient went for ERCP today. Patient reports continued abdoominal discomfort. Improved over past 24 hours. Denies chest pain, shortness of breath, vomiting, fever. Objective - Vital Signs/Intake and Output Vital Signs (last 24 hours): Temp Pulse Resp BP Pulse Ox 98 F 70 18 126/83 95 06/12/17 08:10 06/12/17 08:10 06/12/17 08:10 06/12/17 08:10 06/12/17 08:10 Intake and Output: 06/12/17 06/12/17 06:59 18:59 Intake Total 240 Balance 240 - Medications Medications: Current Medications Acetaminophen (Tylenol 325mg Tab) 650 mg PO Q6H PRN PRN Reason: Fever >100.4 F Last Admin: 06/11/17 06:52 Dose: 650 mg Acetaminophen (Tylenol 325mg Tab) 650 mg PO Q6H PRN PRN Reason: Headache Last Admin: 06/11/17 13:54 Dose: 650 mg Metronidazole (Flagyl) 500 mg in 100 mls @ 100 mls/hr IVPB Q8 [facility] PRN Reason: Protocol Last Admin: 06/12/17 05:20 Dose: 100 mls/hr Ceftriaxone Sodium (Rocephin 1 Gram Ivpb) 1 gm in 100 mls @ 100 mls/hr IVPB DAILY [facility] PRN Reason: Protocol Last Admin: 06/11/17 14:23 Dose: 100 mls/hr Lactated Ringer's (Lactated Ringer's) 1,000 mls @ 100 mls/hr IV .Q10H [facility] Last Admin: 06/11/17 02:05 Dose: 100 mls/hr Lactated Ringer's (Lactated Ringer's) 1,000 mls @ 75 mls/hr IV .[id number] [facility] Stop: 06/12/17 10:01 Morphine Sulfate (Morphine) 2 mg IVP Q4H PRN PRN Reason: Pain, Mild (1-3) Last Admin: 06/12/17 03:05 Dose: 2 mg Ondansetron HCl (Zofran Inj) 4 mg IVP Q4H PRN PRN Reason: Nausea/Vomiting Pantoprazole Sodium (Protonix Inj) 40 mg IVP DAILY [facility] Last Admin: 06/11/17 11:39 Dose: 40 mg Polyethylene Glycol (Miralax) 17 gm PO BID [facility] Last Admin: 06/11/17 18:10 Dose: 17 gm - Labs Labs: 06/12/17 07:30 06/11/17 07:30 PT 11.8 SECONDS (9.4-12.5) 06/10/17 22:10 INR 1.03 (0.93-1.08) 06/10/17 22:10 APTT 26.7 Seconds (25.1-36.5) 06/10/17 22:10 - Constitutional Appears: No Acute Distress - Head Exam Head Exam: ATRAUMATIC, NORMAL INSPECTION, NORMOCEPHALIC - Eye Exam Eye Exam: EOMI, PERRL - ENT Exam ENT Exam: Mucous Membranes Moist - Respiratory Exam Respiratory Exam: Clear to Ausculation Bilateral, NORMAL BREATHING PATTERN. absent: Rales, Rhonchi, Wheezes - Cardiovascular Exam Cardiovascular Exam: REGULAR RHYTHM, +S1, +S2 - GI/Abdominal Exam GI & Abdominal Exam: Guarding (mid to right upper quadrant), Soft, Tenderness, Normal Bowel Sounds - Extremities Exam Extremities Exam: Normal Inspection. absent: Calf Tenderness, Pedal Edema - Neurological Exam Neurological Exam: Alert, Awake, Normal Gait, Oriented x3 - Psychiatric Exam Psychiatric exam: Normal Affect, Normal Mood - Skin Skin Exam: Dry, Warm Assessment and Plan - Assessment and Plan (Free Text) Assessment: 47 year old male with past medical history of GERD?, migraines who presented with epigastric pain, found to have choledocholithiasis and cholangitis. GI and General surgery consulted. Pt is s/p ERCP with sphincterotomy and stone/sludge extraction. Plan: Cholangitis/Choledocholithiasis Details: - Abd US: Slightly dilated CBD, 6.1 mm.extensive gallstones, with no sonographic evidence of cholecystitis. Enlarge fatty liver. Mild splenomegaly. - Abd/pelvis CT: possible tiny stones in distal CBD, with mild biliary ductal dilatation. Extensive gallstones, with small amount of pericholecystic fluid. Fatty infiltration of liver - Febrile, RUQ pain, elevated WBC - MRCP cacelled, ERCP scheduled - GI consulted - Gen Surgery consulted Plan: - IV abx with Rocephin and Flagyl - IVF - ERCP s/p sphincterotomy and stone/sludge extraction Transaminitis Details: - AST 398, ALT 734 - Slightly improved from admission - Etiology likely due to cholangitis/choledocholithiasis Plan: - ERCP, possible cholecystectomy - Monitor DVT ppx: SCDs GI ppx: Protonix Case and plan discussed with attending <Nemo Simons - Last Filed: 06/12/17 12:22> Objective - Vital Signs/Intake and Output Vital Signs (last 24 hours): Temp Pulse Resp BP Pulse Ox 98 F 60 16 128/64 99 06/12/17 10:07 06/12/17 10:07 06/12/17 10:07 06/12/17 10:07 06/12/17 10:07 Intake and Output: 06/12/17 06/12/17 06:59 18:59 Intake Total 240 150 Balance 240 150 - Medications Medications: Current Medications Acetaminophen (Tylenol 325mg Tab) 650 mg PO Q6H PRN PRN Reason: Fever >100.4 F Last Admin: 06/11/17 06:52 Dose: 650 mg Acetaminophen (Tylenol 325mg Tab) 650 mg PO Q6H PRN PRN Reason: Headache Last Admin: 06/11/17 13:54 Dose: 650 mg Metronidazole (Flagyl) 500 mg in 100 mls @ 100 mls/hr IVPB Q8 [facility] PRN Reason: Protocol Last Admin: 06/12/17 05:20 Dose: 100 mls/hr Ceftriaxone Sodium (Rocephin 1 Gram Ivpb) 1 gm in 100 mls @ 100 mls/hr IVPB DAILY [facility] PRN Reason: Protocol Last Admin: 06/11/17 14:23 Dose: 100 mls/hr Lactated Ringer's (Lactated Ringer's) 1,000 mls @ 100 mls/hr IV .Q10H [facility] Last Admin: 06/11/17 02:05 Dose: 100 mls/hr Morphine Sulfate (Morphine) 2 mg IVP Q4H PRN PRN Reason: Pain, Mild (1-3) Last Admin: 06/12/17 03:05 Dose: 2 mg Ondansetron HCl (Zofran Inj) 4 mg IVP Q4H PRN PRN Reason: Nausea/Vomiting Pantoprazole Sodium (Protonix Inj) 40 mg IVP DAILY [facility] Last Admin: 06/11/17 11:39 Dose: 40 mg Polyethylene Glycol (Miralax) 17 gm PO BID [facility] Last Admin: 06/11/17 18:10 Dose: 17 gm - Labs Labs: 06/12/17 07:30 06/12/17 07:30 PT 11.8 SECONDS (9.4-12.5) 06/10/17 22:10 INR 1.03 (0.93-1.08) 06/10/17 22:10 APTT 26.7 Seconds (25.1-36.5) 06/10/17 22:10 Attending/Attestation - Attestation I have fully participated in the care of the patient.: Yes I have reviewed all pertinent clinical information, including history, physical exam and plan: Yes Notes (Text): 06/12/17 12:16 Medical record note made by the resident after discussion with my direction and input after the patient was personally seen and examined by me. I have reviewed the chart and agree that the record accurately reflects by personal performance of the history, physical exam, data review, and medical decision-making, in the course for the patient. I have also personally directed the plan of care. 47 year old male was admitted with abdominal pain , fever and elevated LFT ( Acute cholangitis ,)USG and CT abdomen showed gall stone, dilated CBD and stone in CB Patient underwent ERCP today and is SP sphincterotomy and stone/sludge extraction, He will eventually need cholycystectomy , surgery is following. We will continue , IV Rocephin and Flagyl and will monitor LFT Management plan was discussed in detail with patient. Education was provided. 06/12/17 12:21
[2017-06-12] MEDS ORDERED: Benzocaine/Butamben/Tetracai 14-2-2% TOP Spray TOP ONE (08:28)
[2017-06-12] MEDS ORDERED: Desflurane Inhalation Anesthetic Liq (240 ml) ONE (09:00)
[2017-06-12 09:08] LABS: ALB/GLOB RATIO 1.2 (1.1-1.8); ALBUMIN 3.9 g/dL (3.0-4.8); ALT/SGPT 579 U/L (7-56); AST/SGOT 230 U/L (17-59); BLOOD UREA NITROGEN 8 mg/dL (7-21); CALCIUM 8.9 mg/dL (8.4-10.5); GFR AFRICAN-AMERICAN > 60; GFR NON-AFRICAN AMERICAN > 60
[2017-06-12] MEDS ORDERED: Morphine 4 mg/ml ISec IVP PRN (09:37)
[2017-06-12] MEDS: POLYETHYLENE GLYCOL 3350 17 GM/Dose PACKET PO SCH ×2 (09:56→19:20)
[2017-06-12] MEDS: cefTRIAXone 1 gm 1 GM/100 ML BAG IVPB SCH (09:57)
--- NOTE | 2017-06-12 12:29 | CP.PCM.PN ---
Subjective - Date & Time of Evaluation Date of Evaluation: 06/12/17 Time of Evaluation: 06:45 - Subjective Subjective: Surgery: Dr. Sheets Pt seen and examined. Continues to have epigastric pain. For ERCP today. Objective - Vital Signs/Intake and Output Vital Signs (last 24 hours): Temp Pulse Resp BP Pulse Ox 98 F 60 16 128/64 99 06/12/17 10:07 06/12/17 10:07 06/12/17 10:07 06/12/17 10:07 06/12/17 10:07 Intake and Output: 06/12/17 06/12/17 06:59 18:59 Intake Total 240 150 Balance 240 150 - Medications Medications: Current Medications Acetaminophen (Tylenol 325mg Tab) 650 mg PO Q6H PRN PRN Reason: Fever >100.4 F Last Admin: 06/11/17 06:52 Dose: 650 mg Acetaminophen (Tylenol 325mg Tab) 650 mg PO Q6H PRN PRN Reason: Headache Last Admin: 06/11/17 13:54 Dose: 650 mg Metronidazole (Flagyl) 500 mg in 100 mls @ 100 mls/hr IVPB Q8 [facility] PRN Reason: Protocol Last Admin: 06/12/17 05:20 Dose: 100 mls/hr Ceftriaxone Sodium (Rocephin 1 Gram Ivpb) 1 gm in 100 mls @ 100 mls/hr IVPB DAILY [facility] PRN Reason: Protocol Last Admin: 06/11/17 14:23 Dose: 100 mls/hr Lactated Ringer's (Lactated Ringer's) 1,000 mls @ 100 mls/hr IV .Q10H [facility] Last Admin: 06/11/17 02:05 Dose: 100 mls/hr Morphine Sulfate (Morphine) 2 mg IVP Q4H PRN PRN Reason: Pain, Mild (1-3) Last Admin: 06/12/17 03:05 Dose: 2 mg Ondansetron HCl (Zofran Inj) 4 mg IVP Q4H PRN PRN Reason: Nausea/Vomiting Pantoprazole Sodium (Protonix Inj) 40 mg IVP DAILY [facility] Last Admin: 06/11/17 11:39 Dose: 40 mg Polyethylene Glycol (Miralax) 17 gm PO BID [facility] Last Admin: 06/11/17 18:10 Dose: 17 gm - Labs Labs: 06/12/17 07:30 04/22/18 07:30 PT 11.8 SECONDS (9.4-12.5) 06/10/17 22:10 INR 1.03 (0.93-1.08) 06/10/17 22:10 APTT 26.7 Seconds (25.1-36.5) 06/10/17 22:10 - Constitutional Appears: Non-toxic, No Acute Distress - Head Exam Head Exam: ATRAUMATIC, NORMOCEPHALIC - Eye Exam Eye Exam: EOMI - ENT Exam ENT Exam: Mucous Membranes Moist - Neck Exam Neck Exam: Full ROM - Respiratory Exam Respiratory Exam: NORMAL BREATHING PATTERN. absent: Accessory Muscle Use, Respiratory Distress - GI/Abdominal Exam GI & Abdominal Exam: Soft, Tenderness. absent: Distended, Firm, Guarding, Rigid , Rebound - Extremities Exam Extremities Exam: absent: Calf Tenderness, Pedal Edema - Neurological Exam Neurological Exam: Alert, Awake, Oriented x3 Assessment and Plan - Assessment and Plan (Free Text) Assessment: 47M w. cholangitis, s/p ERCP -continue w. IVF, pain meds, and abx -NPO at midnight, if AM labs are WNL will plan for OR -d/w attending Zemaitis PGY3
--- NOTE | 2017-06-12 23:47 | CON ---
DATE: HISTORY OF PRESENT ILLNESS: Zack Valerio is seen on the floor status post ERCP. He is sleeping at the moment with his abdomen seems soft. We found sludge and infection in the common duct. We will speak to Dr. Rene about the possibility of going forward operation tomorrow. The bilirubin is 3.8 and the AST is 230, down; ALT is 580, down; alkaline phosphatase is 202, stable. Glucose is 119, this is before the ERCP. We tentatively put on schedule for tomorrow, but I am not certain we are going to go forward. Miguel Sheets MD
[2017-06-13] MEDS ORDERED: Apap-Butalbital-Caffeine 325-50-40mg Tab PO ONE (05:10)
[2017-06-13] MEDS: metroNIDAZOLE IV 500 mg/100 ml 500 MG/100 ML BAG IVPB SCH ×2 (05:26→14:43)
--- NOTE | 2017-06-13 07:32 | CP.PCM.PN ---
<Josefina Obrien - Last Filed: 06/13/17 09:06> Subjective - Date & Time of Evaluation Date of Evaluation: 06/13/17 Time of Evaluation: 07:00 - Subjective Subjective: PGY4 GI Follow-up Pt seen and examined bedside No complaints abd pain improved tolerated diet yesterday NPO since midnight +BM ROS: 12 point ROS conducted, neg other than above Objective - Vital Signs/Intake and Output Vital Signs (last 24 hours): Temp Pulse Resp BP Pulse Ox 98 F 60 16 128/64 99 06/12/17 10:07 06/12/17 10:07 06/12/17 10:07 06/12/17 10:07 06/12/17 10:07 Intake and Output: 06/13/17 06/13/17 06:59 18:59 Intake Total 1260 Balance 1260 - Medications Medications: Current Medications Acetaminophen (Tylenol 325mg Tab) 650 mg PO Q6H PRN PRN Reason: Fever >100.4 F Last Admin: 06/11/17 06:52 Dose: 650 mg Acetaminophen (Tylenol 325mg Tab) 650 mg PO Q6H PRN PRN Reason: Headache Last Admin: 06/12/17 21:19 Dose: 650 mg Metronidazole (Flagyl) 500 mg in 100 mls @ 100 mls/hr IVPB Q8 [facility] PRN Reason: Protocol Last Admin: 06/13/17 05:26 Dose: 100 mls/hr Ceftriaxone Sodium (Rocephin 1 Gram Ivpb) 1 gm in 100 mls @ 100 mls/hr IVPB DAILY [facility] PRN Reason: Protocol Last Admin: 06/12/17 09:57 Dose: Not Given Lactated Ringer's (Lactated Ringer's) 1,000 mls @ 100 mls/hr IV .Q10H [facility] Last Admin: 06/11/17 02:05 Dose: 100 mls/hr Morphine Sulfate (Morphine) 2 mg IVP Q4H PRN PRN Reason: Pain, Mild (1-3) Last Admin: 06/12/17 03:05 Dose: 2 mg Ondansetron HCl (Zofran Inj) 4 mg IVP Q4H PRN PRN Reason: Nausea/Vomiting Pantoprazole Sodium (Protonix Inj) 40 mg IVP DAILY [facility] Last Admin: 06/12/17 14:14 Dose: 40 mg Polyethylene Glycol (Miralax) 17 gm PO BID [facility] Last Admin: 06/12/17 19:20 Dose: 17 gm - Labs Labs: 06/12/17 07:30 06/12/17 07:30 PT 11.8 SECONDS (9.4-12.5) 06/10/17 22:10 INR 1.03 (0.93-1.08) 06/10/17 22:10 APTT 26.7 Seconds (25.1-36.5) 06/10/17 22:10 - Constitutional Appears: Well, No Acute Distress - Head Exam Head Exam: ATRAUMATIC, NORMOCEPHALIC - Eye Exam Eye Exam: Normal appearance - ENT Exam ENT Exam: Mucous Membranes Moist, Normal Exam - Neck Exam Neck Exam: Normal Inspection - Respiratory Exam Respiratory Exam: Clear to Ausculation Bilateral, NORMAL BREATHING PATTERN. absent: Rhonchi, Wheezes, Respiratory Distress - Cardiovascular Exam Cardiovascular Exam: REGULAR RHYTHM, +S1, +S2 - GI/Abdominal Exam GI & Abdominal Exam: Soft, Normal Bowel Sounds. absent: Distended, Firm, Guarding, Rigid, Tenderness, Organomegaly, Rebound - Extremities Exam Extremities Exam: absent: Joint Swelling, Pedal Edema - Neurological Exam Neurological Exam: Alert, Awake, Oriented x3 - Psychiatric Exam Psychiatric exam: Normal Affect, Normal Mood - Skin Skin Exam: Dry, Intact, Normal Color, Warm Assessment and Plan - Assessment and Plan (Free Text) Assessment: Zack Valerio is a 47M w. hx of GERD who presents to the ER with epigastric and RUQ pain. S/p ERCP POD #1: small stones, and pus extracted Cholangitis Cholelithiasis GERD Chronic constipation Plan: -waiting on AM labs -possible lap fede today -no sign of pancreatitis -continue abx as per surgery -continue protonix 40mg daily -blood cultures; neg so far -miralax BID will D/w Dr. Arias <Lee Arias - Last Filed: 06/13/17 09:34> Objective - Vital Signs/Intake and Output Vital Signs (last 24 hours): Temp Pulse Resp BP Pulse Ox 97.8 F 60 20 138/95 H 98 06/13/17 07:59 06/13/17 07:59 06/13/17 07:59 06/13/17 07:59 06/13/17 07:59 Intake and Output: 06/13/17 06/13/17 06:59 18:59 Intake Total 1260 Balance 1260 - Medications Medications: Current Medications Acetaminophen (Tylenol 325mg Tab) 650 mg PO Q6H PRN PRN Reason: Fever >100.4 F Last Admin: 06/11/17 06:52 Dose: 650 mg Acetaminophen (Tylenol 325mg Tab) 650 mg PO Q6H PRN PRN Reason: Headache Last Admin: 06/12/17 21:19 Dose: 650 mg Metronidazole (Flagyl) 500 mg in 100 mls @ 100 mls/hr IVPB Q8 [facility] PRN Reason: Protocol Last Admin: 06/13/17 05:26 Dose: 100 mls/hr Ceftriaxone Sodium (Rocephin 1 Gram Ivpb) 1 gm in 100 mls @ 100 mls/hr IVPB DAILY [facility] PRN Reason: Protocol Last Admin: 06/12/17 09:57 Dose: Not Given Lactated Ringer's (Lactated Ringer's) 1,000 mls @ 100 mls/hr IV .Q10H [facility] Last Admin: 06/11/17 02:05 Dose: 100 mls/hr Morphine Sulfate (Morphine) 2 mg IVP Q4H PRN PRN Reason: Pain, Mild (1-3) Last Admin: 06/12/17 03:05 Dose: 2 mg Ondansetron HCl (Zofran Inj) 4 mg IVP Q4H PRN PRN Reason: Nausea/Vomiting Pantoprazole Sodium (Protonix Inj) 40 mg IVP DAILY [facility] Last Admin: 06/12/17 14:14 Dose: 40 mg Polyethylene Glycol (Miralax) 17 gm PO BID [facility] Last Admin: 06/12/17 19:20 Dose: 17 gm - Labs Labs: 06/13/17 08:00 06/13/17 08:00 PT 11.9 SECONDS (9.4-12.5) 06/13/17 08:20 INR 1.03 (0.93-1.08) 06/13/17 08:20 APTT 34.7 Seconds (25.1-36.5) 06/13/17 08:20 Attending/Attestation - Attestation I have personally seen and examined this patient.: Yes I have fully participated in the care of the patient.: Yes I have reviewed all pertinent clinical information, including history, physical exam and plan: Yes Notes (Text): 06/13/17 09:31 I have seen and examined patient with GI fellow. No acute events overnight, he continues to endorse ongoing epigastric/RUQ abdominal pain, though improved compared to prior. He denies nausea, vomiting, fever/chills. Was tolerating PO liquids without difficulty, he is currently NPO for potential surgical intervention. Abdominal pain Transaminitis Cholangitis s/p ERCP with sphincterotomy and sludge extraction - NPO - Continue with antibiotic therapy - LFTs trending down, continue to monitor - Patient on schedule for potential cholecystectomy today, further plan as per surgical team - No further planned GI interventions, will sign off case. Suggest additional outpatient follow up, please reconsult as necessary, thank you.
[2017-06-13 08:40] LABS: EOS # 0.1 (0.0-0.7); EOS % 2.2 % (1.5-5.0); GRAN # 3.09 (1.4-6.5); GRAN % 68.1 % (50.0-68.0); HEMOGLOBIN 11.7 g/dL (14.0-18.0); LYMPH % 22.9 % (22.0-35.0); MEAN CORPUSCULAR HEMOGLOBIN 28.4 pg (25.0-35.0); MEAN CORPUSCULAR HGB CONC 33.4 g/dl (31.0-37.0); MEAN PLATELET VOLUME 10.2 fl (7.0-11.0); MONO # 0.3 (0.1-0.6); MONO % 6.8 % (1.0-6.0); RBC 4.12 10^6/uL (3.5-6.1); WHITE BLOOD COUNT 4.5 10^3/ul (4.5-11.0)
[2017-06-13 08:50] LABS: INR 1.03 (0.93-1.08); PARTIAL THROMBOPLASTIN TIME 34.7 Seconds (25.1-36.5); PROTHROMBIN TIME 11.9 SECONDS (9.4-12.5)
[2017-06-13 09:03] LABS: ALB/GLOB RATIO 1.2 (1.1-1.8); ALBUMIN 3.9 g/dL (3.0-4.8); ALT/SGPT 446 U/L (7-56); AST/SGOT 109 U/L (17-59); BLOOD UREA NITROGEN 8 mg/dL (7-21); CALCIUM 9.2 mg/dL (8.4-10.5); GFR AFRICAN-AMERICAN > 60; GFR NON-AFRICAN AMERICAN > 60; LIPASE 297 U/L (23-300)
[2017-06-13] MEDS: POLYETHYLENE GLYCOL 3350 17 GM/Dose PACKET PO SCH ×2 (09:25→17:26)
[2017-06-13] MEDS: cefTRIAXone 1 gm 1 GM/100 ML BAG IVPB SCH (09:25)
--- NOTE | 2017-06-13 10:19 | RAD ---
PROCEDURE: ERCP HISTORY: R/O OBSTRUCTION COMPARISON: TECHNIQUE: Fluoroscopy was provided in the endoscopy suite. 61.3 seconds of fluoro time. Cumulative dose 14.77 mGy. Five images were submitted FINDINGS: The study shows passage of a balloon catheter through the common duct. IMPRESSION: As above
[2017-06-13] MEDS: Lactated Ringer's 1,000 ML IV SCH (12:23)
--- NOTE | 2017-06-13 13:19 | CP.PCM.PN ---
<Oj Murray - Last Filed: 06/13/17 13:16> Subjective - Date & Time of Evaluation Date of Evaluation: 06/13/17 Time of Evaluation: 13:16 - Subjective Subjective: Patient seen and evaluated this AM. No acute events overnight. Patient reports mild mid to RUQ abdominal pain. Patient denies fever, chills, nausea, vomiting, diarrhea. Objective - Vital Signs/Intake and Output Vital Signs (last 24 hours): Temp Pulse Resp BP Pulse Ox 97.8 F 60 20 138/95 H 98 06/13/17 07:59 06/13/17 07:59 06/13/17 07:59 06/13/17 07:59 06/13/17 07:59 Intake and Output: 06/13/17 06/13/17 06:59 18:59 Intake Total 1260 Balance 1260 - Medications Medications: Current Medications Acetaminophen (Tylenol 325mg Tab) 650 mg PO Q6H PRN PRN Reason: Fever >100.4 F Last Admin: 06/11/17 06:52 Dose: 650 mg Acetaminophen (Tylenol 325mg Tab) 650 mg PO Q6H PRN PRN Reason: Headache Last Admin: 06/12/17 21:19 Dose: 650 mg Metronidazole (Flagyl) 500 mg in 100 mls @ 100 mls/hr IVPB Q8 [facility] PRN Reason: Protocol Last Admin: 06/13/17 05:26 Dose: 100 mls/hr Ceftriaxone Sodium (Rocephin 1 Gram Ivpb) 1 gm in 100 mls @ 100 mls/hr IVPB DAILY [facility] PRN Reason: Protocol Last Admin: 06/13/17 09:25 Dose: 100 mls/hr Lactated Ringer's (Lactated Ringer's) 1,000 mls @ 100 mls/hr IV .Q10H [facility] Last Admin: 06/13/17 12:23 Dose: 100 mls/hr Morphine Sulfate (Morphine) 2 mg IVP Q4H PRN PRN Reason: Pain, Mild (1-3) Last Admin: 06/12/17 03:05 Dose: 2 mg Ondansetron HCl (Zofran Inj) 4 mg IVP Q4H PRN PRN Reason: Nausea/Vomiting Pantoprazole Sodium (Protonix Inj) 40 mg IVP DAILY [facility] Last Admin: 06/13/17 09:26 Dose: 40 mg Polyethylene Glycol (Miralax) 17 gm PO BID [facility] Last Admin: 06/13/17 09:25 Dose: Not Given - Labs Labs: 06/13/17 08:00 06/13/17 08:00 PT 11.9 SECONDS (9.4-12.5) 06/13/17 08:20 INR 1.03 (0.93-1.08) 06/13/17 08:20 APTT 34.7 Seconds (25.1-36.5) 06/13/17 08:20 - Constitutional Appears: No Acute Distress - Head Exam Head Exam: NORMAL INSPECTION, NORMOCEPHALIC - Eye Exam Eye Exam: EOMI, PERRL - Respiratory Exam Respiratory Exam: Clear to Ausculation Bilateral, NORMAL BREATHING PATTERN. absent: Rhonchi, Wheezes - Cardiovascular Exam Cardiovascular Exam: REGULAR RHYTHM, +S1, +S2 - GI/Abdominal Exam GI & Abdominal Exam: Soft, Tenderness (mid epigastric to RUQ), Normal Bowel Sounds. absent: Firm - Extremities Exam Extremities Exam: absent: Calf Tenderness - Neurological Exam Neurological Exam: Alert, Oriented x3 - Psychiatric Exam Psychiatric exam: Normal Affect, Normal Mood - Skin Skin Exam: Dry, Warm Assessment and Plan - Assessment and Plan (Free Text) Assessment: 47 year old male with past medical history of GERD?, migraines who presented with epigastric pain, found to have choledocholithiasis and cholangitis. GI and General surgery consulted. Pt is s/p ERCP with sphincterotomy and stone/sludge extraction. Patient planned to go for lap cholecystectomy with general surgery this afternoon. Plan: Cholangitis/Choledocholithiasis Details: - Abd US: Slightly dilated CBD, 6.1 mm.extensive gallstones, with no sonographic evidence of cholecystitis. Enlarge fatty liver. Mild splenomegaly. - Abd/pelvis CT: possible tiny stones in distal CBD, with mild biliary ductal dilatation. Extensive gallstones, with small amount of pericholecystic fluid. Fatty infiltration of liver - Febrile, RUQ pain, elevated WBC - ERCP preformed 06/12/2017 - GI consulted - Gen Surgery consulted, patient to go for OR today Plan: - IV abx with Rocephin and Flagyl - IVF - ERCP s/p sphincterotomy and stone/sludge extraction - Cholecystectomy today with general surgery Transaminitis Details: - Trending down - Etiology likely due to cholangitis/choledocholithiasis Plan: - ERCP, cholecystectomy - Monitor DVT ppx: SCDs GI ppx: Protonix Case and plan discussed with attending <Thais Raymond - Last Filed: 06/13/17 13:53> Objective - Vital Signs/Intake and Output Vital Signs (last 24 hours): Temp Pulse Resp BP Pulse Ox 97.8 F 60 20 138/95 H 98 06/13/17 07:59 06/13/17 07:59 06/13/17 07:59 06/13/17 07:59 06/13/17 07:59 Intake and Output: 06/13/17 06/13/17 06:59 18:59 Intake Total 1260 Balance 1260 - Medications Medications: Current Medications Acetaminophen (Tylenol 325mg Tab) 650 mg PO Q6H PRN PRN Reason: Fever >100.4 F Last Admin: 06/11/17 06:52 Dose: 650 mg Acetaminophen (Tylenol 325mg Tab) 650 mg PO Q6H PRN PRN Reason: Headache Last Admin: 06/12/17 21:19 Dose: 650 mg Metronidazole (Flagyl) 500 mg in 100 mls @ 100 mls/hr IVPB Q8 [facility] PRN Reason: Protocol Last Admin: 06/13/17 05:26 Dose: 100 mls/hr Ceftriaxone Sodium (Rocephin 1 Gram Ivpb) 1 gm in 100 mls @ 100 mls/hr IVPB DAILY [facility] PRN Reason: Protocol Last Admin: 06/13/17 09:25 Dose: 100 mls/hr Lactated Ringer's (Lactated Ringer's) 1,000 mls @ 100 mls/hr IV .Q10H [facility] Last Admin: 06/13/17 12:23 Dose: 100 mls/hr Morphine Sulfate (Morphine) 2 mg IVP Q4H PRN PRN Reason: Pain, Mild (1-3) Last Admin: 06/12/17 03:05 Dose: 2 mg Ondansetron HCl (Zofran Inj) 4 mg IVP Q4H PRN PRN Reason: Nausea/Vomiting Pantoprazole Sodium (Protonix Inj) 40 mg IVP DAILY [facility] Last Admin: 06/13/17 09:26 Dose: 40 mg Polyethylene Glycol (Miralax) 17 gm PO BID [facility] Last Admin: 06/13/17 09:25 Dose: Not Given - Labs Labs: 06/13/17 08:00 06/13/17 08:00 PT 11.9 SECONDS (9.4-12.5) 06/13/17 08:20 INR 1.03 (0.93-1.08) 06/13/17 08:20 APTT 34.7 Seconds (25.1-36.5) 06/13/17 08:20 Attending/Attestation - Attestation I have personally seen and examined this patient.: Yes I have fully participated in the care of the patient.: Yes I have reviewed all pertinent clinical information, including history, physical exam and plan: Yes Notes (Text): 06/13/17 13:51 47 year old male admitted with abdominal pain, found to have transaminitis and cholangitis. He was seen by GI and surgery and started on antibiotics. He is s/p ERCP yesterday with sphincterotomy and sludge/stone extraction. Plan is for OR cholecystectomy today. Transaminitis is likely secondary to above and slowly improving. Thais Raymond MD Hospitalist.
[2017-06-13] MEDS ORDERED: Bupivacaine 0.5% Inj(30mL) ONE (19:44)
[2017-06-13] MEDS ORDERED: Iohexol 240 (50 ml) ONE (19:44)
[2017-06-13] MEDS ORDERED: Propofol 10 mg/ml Inj (20 ML) ONE (19:46)
[2017-06-13] MEDS ORDERED: Midazolam 2 MG/2 ML VIAL ONE (19:47)
[2017-06-13] MEDS ORDERED: Lidocaine 2% Inj (20ml) ONE (19:48)
[2017-06-13] MEDS ORDERED: Rocuronium 10 mg/ml (5 ml) ONE ×2 (19:49→21:10)
[2017-06-13] MEDS ORDERED: metroNIDAZOLE IV 500 mg/100 ml 500 MG/100 ML BAG ONE (20:32)
[2017-06-13] MEDS ORDERED: Glucagon Recombinant 1 mg Inj ONE (20:57)
[2017-06-13] MEDS ORDERED: Neostigmine Methylsulfate 3mg/3ml Syringe IV ONE (21:24)
[2017-06-13] MEDS ORDERED: Glycopyrrolate 0.2 mg/ml (2ml vial) ONE (21:25)
[2017-06-13] MEDS ORDERED: HYDROmorphone 0.5 mg/0.5 ml ISec IVP PRN (21:46)
--- NOTE | 2017-06-13 21:49 | PCM.SURG1 ---
Surgeon's Initial Post Op Note - Surgeon's Notes Surgeon: Dr Salguero Event Lighting Specialist: Dr Barbosa PGY3, Dr Ramos PGY2 Type of Anesthesia: General Endo Anesthesia Administered By: Dr Ramos Pre-Operative Diagnosis: cholangitis, choledocholithiasis Operative Findings: see report Post-Operative Diagnosis: as above Operation Performed: laparoscopic cholecystectomy. intraoperative cholangiogram Specimen/Specimens Removed: gallbladder Estimated Blood Loss: EBL {In ML}: 10 Blood Products Given: N/A Drains Used: No Drains Post-Op Condition: Good Date of Surgery/Procedure: 06/13/17 Time of Surgery/Procedure: 21:51
[2017-06-13] MEDS ORDERED: Oxycodone/Acetaminophen 5/325 mg Tab PO PRN (21:53)
[2017-06-13 21:57] VITALS: TEMP 98.2
[2017-06-13] MEDS ORDERED: Lactated Ringer's 1,000 ML IV SCH (22:00)
[2017-06-14] MEDS: Morphine 4 mg/ml ISec IVP PRN (02:36)
[2017-06-14] MEDS: metroNIDAZOLE IV 500 mg/100 ml 500 MG/100 ML BAG IVPB SCH ×3 (03:23→13:46)
--- NOTE | 2017-06-14 07:33 | CP.PCM.PN ---
Subjective - Date & Time of Evaluation Date of Evaluation: 06/14/17 Time of Evaluation: 07:31 - Subjective Subjective: Patient seen and examined in bedside. Per nursing no acute events occurred overnight. Patient denies any fevers, chills, nausea, vomiting, abdominal pain, headaches, changes in vision, syncopal episodes, or any other complaints. Objective - Vital Signs/Intake and Output Vital Signs (last 24 hours): Temp Pulse Resp BP Pulse Ox 98.2 F 82 18 140/80 96 06/13/17 22:44 06/13/17 22:44 06/13/17 22:44 06/13/17 22:44 06/13/17 22:44 Intake and Output: 06/14/17 06/14/17 06:59 18:59 Intake Total 360 Balance 360 - Medications Medications: Current Medications Acetaminophen (Tylenol 325mg Tab) 650 mg PO Q6H PRN PRN Reason: Fever >100.4 F Last Admin: 06/11/17 06:52 Dose: 650 mg Acetaminophen (Tylenol 325mg Tab) 650 mg PO Q6H PRN PRN Reason: Headache Last Admin: 06/12/17 21:19 Dose: 650 mg Metronidazole (Flagyl) 500 mg in 100 mls @ 100 mls/hr IVPB Q8 DANNY PRN Reason: Protocol Last Admin: 06/14/17 06:16 Dose: 100 mls/hr Ceftriaxone Sodium (Rocephin 1 Gram Ivpb) 1 gm in 100 mls @ 100 mls/hr IVPB DAILY DANNY PRN Reason: Protocol Last Admin: 06/13/17 09:25 Dose: 100 mls/hr Lactated Ringer's (Lactated Ringer's) 1,000 mls @ 100 mls/hr IV .Q10H [facility] Last Admin: 06/13/17 12:23 Dose: 100 mls/hr Morphine Sulfate (Morphine) 2 mg IVP Q4H PRN PRN Reason: Pain, Mild (1-3) Last Admin: 06/14/17 02:36 Dose: 2 mg Ondansetron HCl (Zofran Inj) 4 mg IVP Q4H PRN PRN Reason: Nausea/Vomiting Oxycodone/Acetaminophen (Percocet 5/325 Mg Tab) 1 tab PO Q4H PRN PRN Reason: Pain, moderate (4-7) Stop: 06/16/17 21:54 Pantoprazole Sodium (Protonix Inj) 40 mg IVP DAILY DANNY Last Admin: 06/13/17 09:26 Dose: 40 mg Polyethylene Glycol (Miralax) 17 gm PO BID DANNY Last Admin: 06/13/17 17:26 Dose: Not Given - Labs Labs: 06/13/17 08:00 06/13/17 08:00 PT 11.9 SECONDS (9.4-12.5) 06/13/17 08:20 INR 1.03 (0.93-1.08) 06/13/17 08:20 APTT 34.7 Seconds (25.1-36.5) 06/13/17 08:20 - Head Exam Head Exam: ATRAUMATIC, NORMAL INSPECTION, NORMOCEPHALIC - Eye Exam Eye Exam: EOMI, Normal appearance - ENT Exam ENT Exam: Mucous Membranes Moist - Respiratory Exam Respiratory Exam: NORMAL BREATHING PATTERN - Cardiovascular Exam Cardiovascular Exam: REGULAR RHYTHM - GI/Abdominal Exam GI & Abdominal Exam: Soft, Normal Bowel Sounds - Extremities Exam Extremities Exam: Full ROM - Back Exam Back Exam: NORMAL INSPECTION - Neurological Exam Neurological Exam: Alert, Awake - Psychiatric Exam Psychiatric exam: Normal Affect, Normal Mood - Skin Skin Exam: Dry, Intact, Normal Color Assessment and Plan - Assessment and Plan (Free Text) Assessment: 47M w. cholangitis, s/p ERCP and lap cholecystectomy Plan: -Will f/u with am labs. -Cleared to be d/c pending am labs -Tolerating diet Will discuss with Attending.
[2017-06-14 07:49] LABS: BASO # 0.01 K/mm3 (0.0-2.0); BASO % 0.1 % (0.0-3.0); EOS # 0.1 (0.0-0.7); EOS % 0.7 % (1.5-5.0); GRAN # 6.36 (1.4-6.5); GRAN % 78.5 % (50.0-68.0); HEMOGLOBIN 12.3 g/dL (14.0-18.0); LYMPH % 12.8 % (22.0-35.0); MEAN CELL VOLUME 85.3 fl (80.0-105.0); MEAN CORPUSCULAR HEMOGLOBIN 28.2 pg (25.0-35.0); MEAN CORPUSCULAR HGB CONC 33.1 g/dl (31.0-37.0); MEAN PLATELET VOLUME 10.1 fl (7.0-11.0); MONO # 0.6 (0.1-0.6); MONO % 7.9 % (1.0-6.0); RBC 4.36 10^6/uL (3.5-6.1); RED CELL DISTRIBUTION WIDTH 13.1 % (11.5-14.5); WHITE BLOOD COUNT 8.1 10^3/ul (4.5-11.0)
[2017-06-14 08:11] LABS: ALB/GLOB RATIO 1.2 (1.1-1.8); ALBUMIN 3.9 g/dL (3.0-4.8); ALT/SGPT 373 U/L (7-56); AST/SGOT 121 U/L (17-59); BLOOD UREA NITROGEN 13 mg/dL (7-21); CALCIUM 9.1 mg/dL (8.4-10.5); GFR AFRICAN-AMERICAN > 60; GFR NON-AFRICAN AMERICAN > 60
[2017-06-14 08:20] VITALS: BP 144/92; PULSE 84; RESP 20; O2SAT 98
--- NOTE | 2017-06-14 09:38 | OP ---
PROCEDURE DATE: 06/13/2017 PREOPERATIVE DIAGNOSIS: Common bile duct stones and cholelithiasis. POSTOPERATIVE DIAGNOSIS: Retained common bile duct stone and cholelithiasis. SURGEON: Shreyas Salguero MD. MANAGER LAB: Dr. Flores. TYPE OF ANESTHESIA: General endotracheal anesthesia. ANESTHESIA ADMINISTERED BY: Dr. Ramos. ESTIMATED BLOOD LOSS: Minimal. SPECIMENS: Gallbladder and gallstone. INDICATIONS: The patient is a 47-year-old male with history of common bile duct stone, status post ERCP who now was brought in for laparoscopic cholecystectomy. DESCRIPTION OF PROCEDURE: The patient was brought to the Operating Room, placed on the operating table in a supine position. The patient was connected to EKG, blood pressure, and pulse oximetry monitors. The patient then underwent general endotracheal anesthesia and was prepped and draped in the usual sterile fashion. First, standard time-out procedure took place where everybody in the room agreed as to the patient's identity, diagnoses and procedure to be done. Operative plan as well as postoperative plan were presented to the team. First using two towel clips, the anterior abdominal wall was elevated and a Veress needle was inserted through a small incision superior to the umbilicus. Once pneumoperitoneum was obtained,a 12-mm trocar was inserted through that incision and careful evaluation of the abdominal cavity revealed the presence of a distended gallbladder with some adhesions of the omentum to the gallbladder wall. We then placed a second 5-mm trocar through the subxiphoid position, through the falciform ligament and procedure with careful dissection of the gallbladder. The gallbladder was grabbed and elevated. The adhesions of the omentum to the gallbladder were taken down and infundibulum of the gallbladder was exposed. The cystic duct lymph node was identified and cystic duct itself was from the surrounding tissue, visible cystic duct artery directly behind it. We then clipped the cystic duct proximally, made a small incision on the side of it and placed a cholangiocatheter into the cystic duct and obtained a cholangiogram under direct visualization with fluoroscopy. The initial cholangiogram revealed the presence of a stone in the distal common bile duct obstructing the common bile duct and there was minimal dye floating into the duodenum. syringes of the saline were used in order to push the stone, which eventually gave up and another cholangiogram obtained after that revealed prompt flow of dye into the entire biliary tree and out into the duodenum without any obstruction. At this point, the cholangiocatheter was removed. Cystic duct was clipped distally and transected. Cystic artery was also clipped proximally and distally and transected. Once this was done, the gallbladder was carefully taken off into the liver bed using electrocautery. Once completely detached from the liver bed, it was placed in the EndoCatch bag and removed for the periumbilical incision. The liver bed was now inspected. There was excellent hemostasis noted. The area was copiously irrigated. All the irrigant fluid was suctioned out. The pneumoperitoneum was released and trocars were removed. The wounds were closed using 0 Vicryl for the fascia, 3-0 Vicryl for the subcutaneous tissue and 4-0 Monocryl for skin. A sterile Dermabond dressing was applied to the wound. The patient tolerated the procedure well and there were no complications. The patient was awakened and transferred to the Recovery Room for further observation. Shreyas Salguero MD
[2017-06-14] MEDS: cefTRIAXone 1 gm 1 GM/100 ML BAG IVPB SCH (10:15)
[2017-06-14] MEDS: Lactated Ringer's 1,000 ML IV SCH (11:20)
--- NOTE | 2017-06-14 11:27 | RAD ---
PROCEDURE: Operative cholangiogram HISTORY: ? CBD OBST COMPARISON: TECHNIQUE: Fluoroscopy was provided in the operating room. 66 seconds of fluoro time. Cumulative dose 26.66 mGy. Seven images were submitted FINDINGS: The study shows opacification of the common duct. Contrast flows into the duodenum without obstruction. IMPRESSION: As above
--- NOTE | 2017-06-14 14:38 | CP.PCM.DIS ---
<Oj Murray - Last Filed: 06/14/17 14:35> Provider - Provider Date of Admission: 06/11/17 00:42 Attending physician: Thais Raymond MD Primary care physician: NO PRIMARY CARE PROVIDER Consults: General Surgery: Dr. Sheets Gastroenterology: Dr. Rene Time Spent in preparation of Discharge (in minutes): 45 Diagnosis - Discharge Diagnosis (1) Choledocholithiasis Status: Resolved (2) Cholangitis Status: Resolved (3) Transaminitis Status: Acute Hospital Course - Lab Results Lab Results: Micro Results 06/11/17 01:20 Blood Blood Culture - Preliminary NO GROWTH AFTER 3 DAYS Most Recent Lab Values WBC 8.1 10^3/ul (4.5-11.0) D 06/14/17 07:20 RBC 4.36 10^6/uL (3.5-6.1) 06/14/17 07:20 Hgb 12.3 g/dL (14.0-18.0) L 06/14/17 07:20 Hct 37.2 % (42.0-52.0) L 06/14/17 07:20 MCV 85.3 fl (80.0-105.0) 06/14/17 07:20 MCH 28.2 pg (25.0-35.0) 06/14/17 07:20 MCHC 33.1 g/dl (31.0-37.0) 06/14/17 07:20 RDW 13.1 % (11.5-14.5) 06/14/17 07:20 Plt Count 284 10^3/uL (120.0-450.0) 06/14/17 07:20 MPV 10.1 fl (7.0-11.0) 06/14/17 07:20 Gran % 78.5 % (50.0-68.0) H 06/14/17 07:20 Lymph % (Auto) 12.8 % (22.0-35.0) L 06/14/17 07:20 [place] % (Auto) 7.9 % (1.0-6.0) H 06/14/17 07:20 Eos % (Auto) 0.7 % (1.5-5.0) L 06/14/17 07:20 Baso % (Auto) 0.1 % (0.0-3.0) 06/14/17 07:20 Gran # 6.36 (1.4-6.5) 06/14/17 07:20 Lymph # (Auto) 1.0 (1.2-3.4) L 06/14/17 07:20 [place] # (Auto) 0.6 (0.1-0.6) 06/14/17 07:20 Eos # (Auto) 0.1 (0.0-0.7) 06/14/17 07:20 Baso # (Auto) 0.01 K/mm3 (0.0-2.0) 06/14/17 07:20 PT 11.9 SECONDS (9.4-12.5) 06/13/17 08:20 INR 1.03 (0.93-1.08) 06/13/17 08:20 APTT 34.7 Seconds (25.1-36.5) 06/13/17 08:20 Sodium 139 mmol/L (132-148) 06/14/17 07:20 Potassium 3.6 mmol/L (3.6-5.0) 06/14/17 07:20 Chloride 100 mmol/L (98-107) 06/14/17 07:20 Carbon Dioxide 25 mmol/L (21-33) 06/14/17 07:20 Anion Gap 17 (10-20) 06/14/17 07:20 BUN 13 mg/dL (7-21) 06/14/17 07:20 Creatinine 0.8 mg/dl (0.8-1.5) 06/14/17 07:20 Est GFR ( Amer) > 60 06/14/17 07:20 Est GFR (Non-Af Amer) > 60 06/14/17 07:20 Random Glucose 141 mg/dL (70-110) H 06/14/17 07:20 Calcium 9.1 mg/dL (8.4-10.5) 06/14/17 07:20 Magnesium 2.0 mg/dL (1.7-2.2) 06/10/17 22:10 Total Bilirubin 1.1 mg/dL (0.2-1.3) 06/14/17 07:20 Direct Bilirubin 2.7 mg/dL (0.0-0.4) H 06/11/17 07:30 AST 121 U/L (17-59) H 06/14/17 07:20 ALT 373 U/L (7-56) H 06/14/17 07:20 Alkaline Phosphatase 196 U/L (38-126) H 06/14/17 07:20 Total Protein 7.3 g/dL (5.8-8.3) 06/14/17 07:20 Albumin 3.9 g/dL (3.0-4.8) 06/14/17 07:20 Globulin 3.3 gm/dL 06/14/17 07:20 Albumin/Globulin Ratio 1.2 (1.1-1.8) 06/14/17 07:20 Lipase 297 U/L (23-300) 06/13/17 08:00 Blood Type A POSITIVE 06/11/17 01:40 Blood Type Confirm A POSITIVE 06/11/17 07:30 Antibody Screen Negative 06/11/17 01:40 BBK History Checked No verified bt 06/11/17 01:40 - Hospital Course Hospital Course: Patient is a 47 year old male with past medical history for GERD who presented to [facility] for 2 week history of epigastric pain. Patient was evaluated in the ED and found to be febrile with temperature of 101.6F, transaminitis, elevated total bilirubin and alkaline phosphatase. Patient had RUQ US preformed which showed choledocholithiasis, mildly dilated common bile duct at 6.1mm and gallstones. GI and General surgery were consulted. GI evaluated the patient and took the patient for ERCP where patient had sphincterotomy and stone/sludge extraction. Patient was placed on clear liquid diet and diet advance as tolerated. General surgery evaluated the patient and recommended cholecystectomy. Patient went to OR for cholecystectomy on 06/13/2017. Patient was evaluated by General Surgery team POD#1 and deemed appropriate for discharge with follow up outpatient. On day of discharge patient reported improvement in his abdominal pain and was able to tolerate diet. Patient was noted to be passing gas and to have had successful BM. Discharge instructions, medication reconciliation, outpatient follow up and signs and symptoms to observed were discussed. - Date & Time of H&P Date of H&P: 06/11/17 Time of H&P: 03:07 Discharge Exam - Head Exam Head Exam: ATRAUMATIC, NORMAL INSPECTION, NORMOCEPHALIC - Eye Exam Eye Exam: EOMI, PERRL - Respiratory Exam Respiratory Exam: NORMAL BREATHING PATTERN. absent: Rhonchi, Wheezes - Cardiovascular Exam Cardiovascular Exam: REGULAR RHYTHM, +S1, +S2 - GI/Abdominal Exam GI & Abdominal Exam: Normal Bowel Sounds, Soft, Tenderness (mild mid epigastric area) - Neurological Exam Neurological exam: Alert, Normal Gait, Oriented x3 - Psychiatric Exam Psychiatric exam: Normal Affect, Normal Mood - Skin Skin Exam: Dry, Warm Discharge Plan - Discharge Medications Prescriptions: oxyCODONE [oxyCODONE Immediate Release Tab] 5 mg PO Q6H #8 tab - Follow Up Plan Condition: STABLE Disposition: HOME/ ROUTINE Instructions: Lactose Intolerance, Endoscopic Retrograde Cholangiopancreatography (DC) Additional Instructions: Follow up with [facility] within 1 to 2 weeks upon discharge , phone number is [phone] Take medications as prescribed to you Follow up with general surgery within 1 to 2 weeks Advance your diet as tolerated Referrals: PCP,NEREYDA [Primary Care Provider] - <Thais Raymond - Last Filed: 06/14/17 16:14> Provider - Provider Date of Admission: 06/11/17 00:42 Attending physician: Thais Raymond MD Primary care physician: NEREYDA PRIMARY CARE PROVIDER Hospital Course - Lab Results Lab Results: Micro Results 06/11/17 01:20 Blood Blood Culture - Preliminary NO GROWTH AFTER 3 DAYS Most Recent Lab Values WBC 8.1 10^3/ul (4.5-11.0) D 06/14/17 07:20 RBC 4.36 10^6/uL (3.5-6.1) 06/14/17 07:20 Hgb 12.3 g/dL (14.0-18.0) L 06/14/17 07:20 Hct 37.2 % (42.0-52.0) L 06/14/17 07:20 MCV 85.3 fl (80.0-105.0) 06/14/17 07:20 MCH 28.2 pg (25.0-35.0) 06/14/17 07:20 MCHC 33.1 g/dl (31.0-37.0) 06/14/17 07:20 RDW 13.1 % (11.5-14.5) 06/14/17 07:20 Plt Count 284 10^3/uL (120.0-450.0) 06/14/17 07:20 MPV 10.1 fl (7.0-11.0) 06/14/17 07:20 Gran % 78.5 % (50.0-68.0) H 06/14/17 07:20 Lymph % (Auto) 12.8 % (22.0-35.0) L 06/14/17 07:20 [place] % (Auto) 7.9 % (1.0-6.0) H 06/14/17 07:20 Eos % (Auto) 0.7 % (1.5-5.0) L 06/14/17 07:20 Baso % (Auto) 0.1 % (0.0-3.0) 06/14/17 07:20 Gran # 6.36 (1.4-6.5) 06/14/17 07:20 Lymph # (Auto) 1.0 (1.2-3.4) L 06/14/17 07:20 [place] # (Auto) 0.6 (0.1-0.6) 06/14/17 07:20 Eos # (Auto) 0.1 (0.0-0.7) 06/14/17 07:20 Baso # (Auto) 0.01 K/mm3 (0.0-2.0) 06/14/17 07:20 PT 11.9 SECONDS (9.4-12.5) 06/13/17 08:20 INR 1.03 (0.93-1.08) 06/13/17 08:20 APTT 34.7 Seconds (25.1-36.5) 06/13/17 08:20 Sodium 139 mmol/L (132-148) 06/14/17 07:20 Potassium 3.6 mmol/L (3.6-5.0) 06/14/17 07:20 Chloride 100 mmol/L (98-107) 06/14/17 07:20 Carbon Dioxide 25 mmol/L (21-33) 06/14/17 07:20 Anion Gap 17 (10-20) 06/14/17 07:20 BUN 13 mg/dL (7-21) 06/14/17 07:20 Creatinine 0.8 mg/dl (0.8-1.5) 06/14/17 07:20 Est GFR ( Amer) > 60 06/14/17 07:20 Est GFR (Non-Af Amer) > 60 06/14/17 07:20 Random Glucose 141 mg/dL (70-110) H 06/14/17 07:20 Calcium 9.1 mg/dL (8.4-10.5) 06/14/17 07:20 Magnesium 2.0 mg/dL (1.7-2.2) 06/10/17 22:10 Total Bilirubin 1.1 mg/dL (0.2-1.3) 06/14/17 07:20 Direct Bilirubin 2.7 mg/dL (0.0-0.4) H 06/11/17 07:30 AST 121 U/L (17-59) H 06/14/17 07:20 ALT 373 U/L (7-56) H 06/14/17 07:20 Alkaline Phosphatase 196 U/L (38-126) H 06/14/17 07:20 Total Protein 7.3 g/dL (5.8-8.3) 06/14/17 07:20 Albumin 3.9 g/dL (3.0-4.8) 06/14/17 07:20 Globulin 3.3 gm/dL 06/14/17 07:20 Albumin/Globulin Ratio 1.2 (1.1-1.8) 06/14/17 07:20 Lipase 297 U/L (23-300) 06/13/17 08:00 Blood Type A POSITIVE 06/11/17 01:40 Blood Type Confirm A POSITIVE 06/11/17 07:30 Antibody Screen Negative 06/11/17 01:40 BBK History Checked No verified bt 06/11/17 01:40 Attending/Attestation - Attestation I have personally seen and examined this patient.: Yes I have fully participated in the care of the patient.: Yes I have reviewed all pertinent clinical information, including history, physical exam and plan: Yes Notes (Text): 06/14/17 16:12 47 year old male admitted with abdominal pain, found to have transaminitis and cholangitis. He was seen by GI and surgery and started on antibiotics. He underwent ERCP with sphincterotomy and sludge/stone extraction on Tuesday and OR cholecystectomy yesterday. He is doing well post-op. He is tolerating his diet. He had tansaminitis likely secondary which has been improving. Patient is discharged home to follow up with pmd or [facility]. Follow up with GI/surgery. Thais Raymond MD Hospitalist.
== END 2017-06-14 18:26 | disposition home or self-care (01) | DRG 419 ==
LOC: ED 20:31 → ERH 06-11 00:42 → 5RSO 06-11 03:43
PROVIDERS: ADMIT Internal Medicine; ATTEND Internal Medicine
PROC: 0FC98ZZ Extirpation of Matter from Common Bile Duct, Via Natural or Artificial Opening Endoscopic (ICD-10-PCS; 2017-06-12)
PROC: BF131ZZ Fluoroscopy of Gallbladder and Bile Ducts using Low Osmolar Contrast (ICD-10-PCS; 2017-06-13)
PROC: 0FT44ZZ Resection of Gallbladder, Percutaneous Endoscopic Approach (ICD-10-PCS; principal; 2017-06-13 12:15)
DX: K80.66 Calculus of gallbladder and bile duct with acute and chronic cholecystitis without obstruction (principal); K21.9 Gastro-esophageal reflux disease without esophagitis; E87.6 Hypokalemia; K59.09 Other constipation; K29.70 Gastritis, unspecified, without bleeding; G43.909 Migraine, unspecified, not intractable, without status migrainosus; K76.0 Fatty (change of) liver, not elsewhere classified; R16.1 Splenomegaly, not elsewhere classified